=== PATIENT | female | born 1935 | race Caucasian/White ===

== ENCOUNTER → 2017-01-10 | Outpatient (CLI) | payer MEDICARE ==
[2016-03-21 18:48] VITALS: BP 168/90
--- NOTE | 2017-01-10 13:32 | RAD ---
DATE: 01/10/2017 EXAM: DIGITAL SCREEN BILAT W/CAD HISTORY: Routine screening COMPARISON: Baseline study This study was interpreted with the benefit of Computerized Aided Detection (CAD). FINDINGS: The breasts are heterogeneously dense. No discrete mass is identified. Benign type calcifications are present in both breasts. No suspicious microcalcifications are evident. IMPRESSION: There is no mammographic evidence of malignancy in either breast. BI-RADS CATEGORY: 2 BENIGN FINDING(S) RECOMMENDED FOLLOW-UP: 12M 12 MONTH FOLLOW-UP PQRS compliance statement: Patient information was entered into a reminder system with a target due date for the next mammogram. Mammography is a sensitive method for finding small breast cancers, but it does not detect them all and is not a substitute for careful clinical examination. A negative mammogram does not negate a clinically suspicious finding and should not result in delay in biopsying a clinically suspicious abnormality. "Our facility is accredited by the [employer] Mammography Program."
== END | disposition home or self-care (01) ==
LOC: MAMMO 08:48
PROVIDERS: ATTEND Family Medicine
DX: Z12.31 Encounter for screening mammogram for malignant neoplasm of breast (principal)
CPT/HCPCS: G0202; 77067

== ENCOUNTER 2017-04-30 23:33 | Inpatient (IN) | payer MEDICARE ==
[~2017-04-30] VITALS: Ht 154.9 cm; Wt 71.8 kg
[2017-05-01] MEDS ORDERED: ALBUTEROL SULFATE 2.5 MG/3 ML NEBU. NEB ONE (00:30)
[2017-05-01 00:38] LABS: BASO # 0.1 x10^3/uL (0.0-0.2); BASO % 1 % (0-3); EOS % 1 % (0-3); HEMATOCRIT 43.4 % (36.0-47.0); HEMOGLOBIN 14.8 g/dL (12.0-15.5); LYMPH # 1.2 x10^3/uL (1.0-4.8); LYMPH % 9 % (24-48); MEAN CORPUSCULAR HEMOGLOBIN 34 pg (25-35); MEAN CORPUSCULAR HGB CONC 34 g/dL (31-37); MEAN CORPUSCULAR VOLUME 98 fL (79-100); MONO % 4 % (0-9); NEUT % 86 % (31-73); PLATELET COUNT 311 x10^3/uL (140-400); RED BLOOD COUNT 4.41 x10^6/uL (3.50-5.40); RED CELL DISTRIBUTION WIDTH 12.9 % (11.5-14.5); WHITE BLOOD COUNT 13.8 x10^3/uL (4.0-11.0)
[2017-05-01 00:48] LABS: PROTHROMBIN TIME PATIENT 12.5 SEC (11.7-14.0)
[2017-05-01 01:38] LABS: CALCIUM 9.5 mg/dL (8.5-10.1); GFR 53.1; POTASSIUM 3.7 mmol/L (3.5-5.1)
[2017-05-01 01:43] LABS: ALBUMIN/GLOBULIN RATIO 1.1 (1.0-1.7); TOTAL BILIRUBIN 1.2 mg/dL (0.2-1.0); TOTAL PROTEIN 7.5 g/dL (6.4-8.2)
[2017-05-01 01:51] LABS: CREATINE KINASE 60 U/L (26-192)
[2017-05-01 01:54] LABS: CKMB MASS < 0.5 ng/mL (0.0-3.6)
--- NOTE | 2017-05-01 03:10 | PHYS DOC ---
Past Medical History Past Medical History: CAD, Heart Disease, Hypertension, PA Past Surgical History: Coronary Bypass Surgery Alcohol Use: Rarely Drug Use: None Adult General Chief Complaint Chief Complaint: COUGH HPI HPI Patient is a 82 year old female who presents with complaint of cough and shortness of breath. Patient states that she has been having trouble with cough over the past 4 weeks, however she has been having worsening symptoms over the past 3-4 days. The patient denies history of asthma or COPD but does have history of or near artery disease and has had bypass surgery several years ago. Patient has had no fevers. Patient states that she has been coughing up clearish to yellowish sputum. Denies fevers. Patient has had intermittent chest discomfort but denies any substernal chest pain currently. Patient states that she has been having coughing fits that cause her to have vomiting after coughing. Denies abdominal pain or diarrhea. Patient notes mild generalized weakness. Patient came to the emergency department for further evaluation. Review of Systems Review of Systems Constitutional: Denies fever or chills [] Eyes: Denies change in visual acuity, redness, or eye pain [] HENT: Denies nasal congestion or sore throat [] Respiratory: Cough, shortness of breath [] Cardiovascular: Edema, denies substernal chest pain [] GI: Denies abdominal pain, nausea, vomiting, bloody stools or diarrhea [] : Denies dysuria or hematuria [] Musculoskeletal: Denies back pain or joint pain [] Integument: Denies rash or skin lesions [] Neurologic: Denies headache, focal weakness or sensory changes [] Current Medications Current Medications Current Medications Medications (Trade) Dose Ordered Sig/Sofia Start Time Stop Time Status Last Admin Dose Admin Albuterol Sulfate (Ventolin Neb Soln) 2.5 mg 1X ONCE 05/01/17 00:30 05/01/17 00:31 DC 05/01/17 00:47 2.5 MG Allergies Allergies Allergies Coded Allergies Type Severity Reaction Last Updated Verified Penicillins Allergy Severe Hives 03/21/16 Yes Physical Exam Physical Exam Constitutional: Alert, afebrile, appears in mild discomfort. [] HENT: Normocephalic, atraumatic, bilateral external ears normal, oropharynx moist, no oral exudates, nose normal. [] Eyes: PERRLA, EOMI, conjunctiva normal, no discharge. [] Neck: Normal range of motion, no tenderness, supple, no stridor. [] Cardiovascular:Heart rate regular rhythm, no murmur [] Lungs & Thorax: Mildly restricted air movement bilaterally, no wheezes, no rales [] Abdomen: Bowel sounds normal, soft, no tenderness, no masses, no pulsatile masses. [] Skin: Warm, dry, no erythema, no rash. [] Back: No tenderness, no CVA tenderness. [] Extremities: No tenderness, no cyanosis, no clubbing, ROM intact, 1+ pedal edema bilaterally. [] Neurologic: Alert and oriented X 3, normal motor function, normal sensory function, no focal deficits noted. [] Current Patient Data Vital Signs Vital Signs Date Time Temp Pulse Resp B/P (MAP) Pulse Ox O2 Delivery O2 Flow Rate FiO2 05/01/17 03:00 74 18 142/69 (93) 95 Room Air 05/01/17 00:00 99.6 99.6 Lab Values Laboratory Tests Test 05/01/17 00:25 05/01/17 01:04 White Blood Count 13.8 x10^3/uL (4.0-11.0) H Red Blood Count 4.41 x10^6/uL (3.50-5.40) Hemoglobin 14.8 g/dL (12.0-15.5) Hematocrit 43.4 % (36.0-47.0) Mean Corpuscular Volume 98 fL (79-100) Mean Corpuscular Hemoglobin 34 pg (25-35) Mean Corpuscular Hemoglobin Concent 34 g/dL (31-37) Red Cell Distribution Width 12.9 % (11.5-14.5) Platelet Count 311 x10^3/uL (140-400) Neutrophils (%) (Auto) 86 % (31-73) H Lymphocytes (%) (Auto) 9 % (24-48) L Monocytes (%) (Auto) 4 % (0-9) Eosinophils (%) (Auto) 1 % (0-3) Basophils (%) (Auto) 1 % (0-3) Neutrophils # (Auto) 11.8 x10^3uL (1.8-7.7) H Lymphocytes # (Auto) 1.2 x10^3/uL (1.0-4.8) Monocytes # (Auto) 0.5 x10^3/uL (0.0-1.1) Eosinophils # (Auto) 0.1 x10^3/uL (0.0-0.7) Basophils # (Auto) 0.1 x10^3/uL (0.0-0.2) Segmented Neutrophils % 79 % (35-66) H Band Neutrophils % 4 % (0-9) Lymphocytes % 11 % (24-48) L Monocytes % 5 % (0-10) Eosinophils % 1 % (0-5) Platelet Estimate Adequate (ADEQUATE) Prothrombin Time 12.5 SEC (11.7-14.0) Prothrombin Time INR 1.0 (0.8-1.1) Sodium Level 144 mmol/L (136-145) Potassium Level 3.7 mmol/L (3.5-5.1) Chloride Level 105 mmol/L (98-107) Carbon Dioxide Level 27 mmol/L (21-32) Anion Gap 12 (6-14) Blood Urea Nitrogen 12 mg/dL (7-20) Creatinine 1.0 mg/dL (0.6-1.0) Estimated GFR (Cockcroft-Gault) 53.1 BUN/Creatinine Ratio 12 (6-20) Glucose Level 124 mg/dL (70-99) H Calcium Level 9.5 mg/dL (8.5-10.1) Total Bilirubin 1.2 mg/dL (0.2-1.0) H Aspartate Amino Transferase (AST) 20 U/L (15-37) Alanine Aminotransferase (ALT) 21 U/L (14-59) Alkaline Phosphatase 91 U/L (46-116) Creatine Kinase 60 U/L (26-192) Creatine Kinase MB (Mass) < 0.5 ng/mL (0.0-3.6) Creatine Kinase MB Relative Index 0.8 % (0-4) Troponin I Quantitative 0.180 ng/mL (0.000-0.055) Total Protein 7.5 g/dL (6.4-8.2) Albumin 4.0 g/dL (3.4-5.0) Albumin/Globulin Ratio 1.1 (1.0-1.7) Lipase 317 U/L (73-393) Laboratory Tests 05/01/17 00:25 Laboratory Tests 05/01/17 01:04 EKG EKG EKG interpreted by me: Heart rate 73, ventricularly paced rhythm, no acute ST elevations [] Radiology/Procedures Radiology/Procedures Two-view chest x-ray interpreted by me: No pulmonary infiltrates or effusions, normal cardiac silhouette [] Course & Med Decision Making Course & Med Decision Making Pertinent Labs and Imaging studies reviewed. (See chart for details) Patient was given breathing treatment in the emergency department with improvement in symptoms. The patient's chest x-ray did not show obvious signs of pneumonia. The patient was found to have a mildly elevated troponin level in the emergency department. Etiology of elevated troponin is unclear at this time. The patient will require admission to the hospital for rule out of possible myocardial infarction. I spoke with Dr. Lamar who accepted care patient in hospital. Dragon Disclaimer Dragon Disclaimer This electronic medical record was generated, in whole or in part, using a voice recognition dictation system. Departure Departure Impression: Primary Impression: Elevated troponin Additional Impression: Cough Disposition: ADMITTED INPATIENT Admitting Physician: Steven Lamar Condition: GUARDED Referrals: ZAKI SETHI MD (PCP) Problem Qualifiers AVANI GOLDBERG MD May 01, 2017 03:10
[2017-05-01 04:22] LABS: % EOS 1 % (0-5); PLT ESTIMATE ADEQUATE (ADEQUATE)
[2017-05-01 04:46] VITALS: BP 154/70
[2017-05-01] MEDS ORDERED: MELA3TAB2 PO (05:50)
[2017-05-01] MEDS ORDERED: RAMI2.5C PO (05:50)
[2017-05-01] MEDS ORDERED: ASPI-630 PO (05:50)
[2017-05-01] MEDS ORDERED: CHOL10003 PO (05:50)
[2017-05-01] MEDS ORDERED: LEVO25TA4 PO (05:50)
[2017-05-01] MEDS ORDERED: CEFD300C PO (05:50)
[2017-05-01] MEDS ORDERED: HYDR-971 PO (05:50)
[2017-05-01] MEDS ORDERED: MULT1TAB52 PO (05:50)
[2017-05-01] MEDS ORDERED: CARV3.122 PO (05:50)
[2017-05-01] MEDS ORDERED: CALC500T PO (05:50)
[2017-05-01] MEDS ORDERED: METH29OI TP (05:50)
[2017-05-01] MEDS ORDERED: SIMV20TA3 PO (05:50)
[2017-05-01] MEDS ORDERED: EZET10TA18 PO (05:50)
[2017-05-01] MEDS ORDERED: ALLO100T PO (05:50)
[2017-05-01 07:00] VITALS: BP 112/61
[2017-05-01] MEDS ORDERED: ONDANSETRON PF 4 MG/2 ML VIAL. IV PRN (07:00)
[2017-05-01] MEDS ORDERED: ACETAMINOPHEN 325 MG TABLET. PO PRN (07:00)
[2017-05-01] MEDS ORDERED: fentaNYL PF VIAL 100 MCG/2 ML VIAL IV PRN (07:00)
[2017-05-01] MEDS: IV NORMAL SALINE 1000ML BAG 1,000 ML IV SCH ×2 (07:47→16:35)
--- NOTE | 2017-05-01 08:06 | RAD ---
Examination: 2 views of the chest. History: History of cough Comparison: None available Findings: Left-sided cardiac pacer/AICD identified. Changes of CABG. The cardiomediastinal silhouette grossly appears unremarkable. There is no acute infiltrate or visualized pneumothorax identified. Impression: No acute cardiopulmonary findings.
--- NOTE | 2017-05-01 08:11 | EKG ---
[facility] [address] [place] [address] Test Date: 2017-05-01 Test Time: 08:01:10 Pat Name: RAVINDRA WAY Department: Room: 246 1 Gender: F Audit Reviewer: : 1935 Requested By: AVANI GOLDBERG Order Number: [id number] Reading MD: Measurements Intervals [place] Rate: 70 P: 27 NV: 140 QRS: 111 QRSD: 142 T: -15 QT: 470 QTc: 511 Interpretive Statements SINUS RHYTHM ABNORMAL RIGHT AXIS DEVIATION NON SPECIFIC INTRAVENTRICULAR BLOCK QRS(T) CONTOUR ABNORMALITY CONSIDER ANTEROLATERAL MYOCARDIAL DAMAGE ABNORMAL ECG RI6.01 Compared to ECG 03/21/2016 16:53:20 Possible ischemia no longer present T-wave abnormality no longer present
[2017-05-01] MEDS: IPRATRPIUM/ALBUTEROL 0.5/2.5MG 3 ML NEBU. NEB SCH ×4 (08:16→19:23)
[2017-05-01 10:48] VITALS: BP 130/54
--- NOTE | 2017-05-01 12:33 | PDOC2 ---
CARDIOLOGY CONSULT NOTE CHEIF COMPLAINT: Coughing Problems: HPI: Pleasant 82 y.o woman presenting to the hospital with acute on chronic cough. She has had struggles with post-nasal discharge, weather changes etc. She has had violent coughs and initially went to ER but was tired of waiting there for 4 hours and then presented to our ER. In the ER noted to have had an elevated troponin so she was admitted for rule out. At baseline she has mild dyspnea but denies any angina. Recently seen by Dr. Armando and reportedly told that her EF was improved. Currently chest pain free. Still has cough. PMHX: CAD s/p CABG HTN DLP SOCHX: No alcohol, tob or illicits. FAMHX: Non-contributory CURRENT MEDS: Current Medications Medications (Trade) Dose Ordered Sig/Sofia Start Time Stop Time Status Last Admin Dose Admin Acetaminophen (Tylenol) 650 mg PRN Q4HRS PRN 05/01/17 07:00 05/01/17 07:46 650 MG Albuterol Sulfate (Ventolin Neb Soln) 2.5 mg 1X ONCE 05/01/17 00:30 05/01/17 00:31 DC 05/01/17 00:47 2.5 MG Albuterol/ Ipratropium (Duoneb) 3 ml RTQID 05/01/17 08:00 05/02/17 07:59 05/01/17 11:26 3 ML Fentanyl Citrate (Fentanyl 2ml Vial) 50 mcg PRN Q2HR PRN 05/01/17 07:00 05/02/17 06:59 Ondansetron HCl (Zofran) 4 mg PRN Q8HRS PRN 05/01/17 07:00 05/02/17 06:59 Sodium Chloride 1,000 ml @ 100 mls/hr Q10H 05/01/17 06:56 05/02/17 06:55 05/01/17 07:47 100 MLS/HR ALLERGIES: Allergies Coded Allergies Type Severity Reaction Last Updated Verified Penicillins Allergy Severe Hives 03/21/16 Yes ROS: Negative for 08/06 systems reviewed unless otherwise noted above in HPI PHYSICAL EXAM: Vital Signs: Vital Signs Date Time Temp Pulse Resp B/P (MAP) Pulse Ox O2 Delivery O2 Flow Rate FiO2 05/01/17 11:26 95 Room Air 7/9/17 10:48 98.3 71 18 130/54 79 98.3 Physical Exam: GEN.: No apparent distress. Alert and oriented. HEENT: Head is normocephalic, atraumatic NECK: Supple. LUNGS: Clear to auscultation. HEART: RRR, S1, S2 present. Peripheral pulses intact ABDOMEN: Soft, nontender. Positive bowel sounds. EXTREMITIES: Without any cyanosis. NEUROLOGIC: Normal speech, normal tone PSYCHIATRIC: Normal affect, normal mood. SKIN: No ulcerations DIAGNOSTIC TESTING: Tele - unremarkable. EKG - No acute findings. Lab Trop +, downtrending, minimally elevated. ASSESSMENT: 1. Hypertensive urgency - 2. CAD s/p CABG 3. 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 4. Elevated troponin - likely secondary to #1. PLAN: 1. Restart home meds. 2. She is euvolemic. No need for diuresis. 3. BP likely elevated in the setting of coughing etc. At baseline she has normal BP on minimal meds. Supportive care. Check echo. f/u with outpt construction area manager Dr. Armando. Thanks for consultation. Ok to DC from CV perspective if echo is grossly normal. BYRON FINE MD May 01, 2017 12:33
[2017-05-01] MEDS ORDERED: CALCIUM CARBONATE 500 MG TABLET PO PRN (12:45)
--- NOTE | 2017-05-01 12:56 | PDOC1 ---
History and Physical Date of Admission Date of Admission DATE: 05/01/17 TIME: 12:54 Identification/Chief Complaint Chief Complaint Angina Problems: History of Present Illness History of Present Illness 82 y.o female had CP with elevated troponin to .14 then .18 Pt seen and examined Dw ER Doc. Plan is admit with consult to cardiology Dictation still broken Toatl time 32 minutes Current Problem List Problem List Problems Medical Problems: (1) Cough Status: Acute (2) Elevated troponin Status: Acute Problems: Current Medications Current Medications Current Medications Albuterol Sulfate (Ventolin Neb Soln) 2.5 mg 1X ONCE NEB Last administered on 05/01/17 00:47; Start 05/01/17 at 00:30; Stop 05/01/17 at 00:31; Status DC Acetaminophen (Tylenol) 650 mg PRN Q4HRS PRN PO MILD PAIN / TEMP Last administered on 05/01/17 07:46; Start 05/01/17 at 07:00 Ondansetron HCl (Zofran) 4 mg PRN Q8HRS PRN IV NAUSEA/VOMITING; Start 05/01/17 at 07:00; Stop 05/02/17 at 06:59 Fentanyl Citrate (Fentanyl 2ml Vial) 50 mcg PRN Q2HR PRN IV PAIN; Start at 07:00; Stop 05/02/17 at 06:59 Sodium Chloride 1,000 ml @ 100 mls/hr Q10H IV Last administered on 05/01/17 07 :47; Start 05/01/17 at 06:56; Stop 05/02/17 at 06:55 Albuterol/ Ipratropium (Duoneb) 3 ml RTQID NEB Last administered on 05/01/17 11 :26; Start 05/01/17 at 08:00; Stop 05/02/17 at 07:59 Allopurinol (Zyloprim) 100 mg DAILY PO ; Start 05/01/17 at 13:00 Aspirin (Children'S Aspirin) 81 mg DAILY PO ; Start 05/01/17 at 13:00 Calcium Carbonate/ Glycine (Oscal) 500 mg PRN TID PRN PO HEARTBURN.; Start 05/01 at 12:45 Carvedilol (Coreg) 3.125 mg BIDWMEALS PO ; Start 05/01/17 at 13:00 Vitamin D (Vitamin D3) 1,000 unit DAILY PO ; Start 05/01/17 at 13:00 EZETIMIBE (Zetia) 10 mg DAILY PO ; Start 05/01/17 at 13:00 Acetaminophen/ Hydrocodone Bitart (Lortab 5/325) 1 tab PRN Q4HRS PRN PO MODERATE PAIN; Start 05/01/17 at 12:45 Levothyroxine Sodium (Synthroid) 25 mcg DAILY06 PO ; Start 05/01/17 at 13:00 Multi-Ingredient Ointment (Analgesic [place]) 1 dinesh QHS TP ; Start 05/01/17 at 21:00 Simvastatin (Zocor) 20 mg QHS PO ; Start 05/01/17 at 21:00 Multivitamins (Thera M Plus) 1 tab DAILY PO ; Start 05/02/17 at 09:00 Lisinopril (Prinivil) 5 mg DAILY PO ; Start 05/01/17 at 13:00 Active Scripts Active Reported Simvastatin 20 Mg Tablet 1 Tab PO QHS Ramipril 2.5 Mg Capsule 1 Cap PO DAILY Traver 5-325 Tablet (Acetaminophen/Hydrocodone Bitart) 1 Each Tablet 1 Tab PO Q4- 6HRS Multivitamins (Multivitamin) 1 Each Tablet 1 Tab PO DAILY Melatonin 3 Mg Tablet 6 Mg PO Levothyroxine Sodium 25 Mcg Tablet 1 Tab PO DAILY Zetia (Ezetimibe) 10 Mg Tablet 1 Tab PO DAILY Vitamin D3 (Cholecalciferol (Vitamin D3)) 1,000 Unit Tablet 1 Tab PO DAILY Cefdinir 300 Mg Capsule 1 Cap PO BID Carvedilol 3.125 Mg Tablet 1 Tab PO BID Calcium Carbonate 500 Mg Tablet 500 Mg PO PRN TID Aspirin 81 Mg Tab.chew 1 Tab PO DAILY Analgesic [place] (Methyl Salicylate/Menthol) 28 Gm Oint...g. 1 Gm TP QHS Allopurinol 100 Mg Tablet 1 Tab PO DAILY Allergies Allergies: Coded Allergies: Penicillins (Verified Allergy, Severe, Hives, 03/21/16) Vitals Vitals Vital Signs Date Time Temp Pulse Resp B/P (MAP) Pulse Ox O2 Delivery O2 Flow Rate FiO2 05/01/17 11:26 95 Room Air 05/01/17 10:48 98.3 71 18 130/54 (79) 98.3 Labs Labs Laboratory Tests Test 05/01/17 00:25 05/01/17 01:04 05/01/17 08:00 White Blood Count 13.8 x10^3/uL (4.0-11.0) Red Blood Count 4.41 x10^6/uL (3.50-5.40) Hemoglobin 14.8 g/dL (12.0-15.5) Hematocrit 43.4 % (36.0-47.0) Mean Corpuscular Volume 98 fL (79-100) Mean Corpuscular Hemoglobin 34 pg (25-35) Mean Corpuscular Hemoglobin Concent 34 g/dL (31-37) Red Cell Distribution Width 12.9 % (11.5-14.5) Platelet Count 311 x10^3/uL (140-400) Neutrophils (%) (Auto) 86 % (31-73) Lymphocytes (%) (Auto) 9 % (24-48) Monocytes (%) (Auto) 4 % (0-9) Eosinophils (%) (Auto) 1 % (0-3) Basophils (%) (Auto) 1 % (0-3) Neutrophils # (Auto) 11.8 x10^3uL (1.8-7.7) Lymphocytes # (Auto) 1.2 x10^3/uL (1.0-4.8) Monocytes # (Auto) 0.5 x10^3/uL (0.0-1.1) Eosinophils # (Auto) 0.1 x10^3/uL (0.0-0.7) Basophils # (Auto) 0.1 x10^3/uL (0.0-0.2) Segmented Neutrophils % 79 % (35-66) Band Neutrophils % 4 % (0-9) Lymphocytes % 11 % (24-48) Monocytes % 5 % (0-10) Eosinophils % 1 % (0-5) Platelet Estimate Adequate (ADEQUATE) Prothrombin Time 12.5 SEC (11.7-14.0) Prothromb Time International Ratio 1.0 (0.8-1.1) Sodium Level 144 mmol/L (136-145) Potassium Level 3.7 mmol/L (3.5-5.1) Chloride Level 105 mmol/L (98-107) Carbon Dioxide Level 27 mmol/L (21-32) Anion Gap 12 (6-14) Blood Urea Nitrogen 12 mg/dL (7-20) Creatinine 1.0 mg/dL (0.6-1.0) Estimated GFR (Cockcroft-Gault) 53.1 BUN/Creatinine Ratio 12 (6-20) Glucose Level 124 mg/dL (70-99) Calcium Level 9.5 mg/dL (8.5-10.1) Total Bilirubin 1.2 mg/dL (0.2-1.0) Aspartate Amino Transf (AST/SGOT) 20 U/L (15-37) Alanine Aminotransferase (ALT/SGPT) 21 U/L (14-59) Alkaline Phosphatase 91 U/L (46-116) Creatine Kinase 60 U/L (26-192) Creatine Kinase MB (Mass) < 0.5 ng/mL (0.0-3.6) Creatine Kinase MB Relative Index 0.8 % (0-4) Troponin I Quantitative 0.180 ng/mL (0.000-0.055) 0.148 ng/mL (0.000-0.055) Total Protein 7.5 g/dL (6.4-8.2) Albumin 4.0 g/dL (3.4-5.0) Albumin/Globulin Ratio 1.1 (1.0-1.7) Lipase 317 U/L (73-393) Laboratory Tests Test 05/01/17 00:25 05/01/17 01:04 05/01/17 08:00 White Blood Count 13.8 x10^3/uL (4.0-11.0) Red Blood Count 4.41 x10^6/uL (3.50-5.40) Hemoglobin 14.8 g/dL (12.0-15.5) Hematocrit 43.4 % (36.0-47.0) Mean Corpuscular Volume 98 fL (79-100) Mean Corpuscular Hemoglobin 34 pg (25-35) Mean Corpuscular Hemoglobin Concent 34 g/dL (31-37) Red Cell Distribution Width 12.9 % (11.5-14.5) Platelet Count 311 x10^3/uL (140-400) Neutrophils (%) (Auto) 86 % (31-73) Lymphocytes (%) (Auto) 9 % (24-48) Monocytes (%) (Auto) 4 % (0-9) Eosinophils (%) (Auto) 1 % (0-3) Basophils (%) (Auto) 1 % (0-3) Neutrophils # (Auto) 11.8 x10^3uL (1.8-7.7) Lymphocytes # (Auto) 1.2 x10^3/uL (1.0-4.8) Monocytes # (Auto) 0.5 x10^3/uL (0.0-1.1) Eosinophils # (Auto) 0.1 x10^3/uL (0.0-0.7) Basophils # (Auto) 0.1 x10^3/uL (0.0-0.2) Segmented Neutrophils % 79 % (35-66) Band Neutrophils % 4 % (0-9) Lymphocytes % 11 % (24-48) Monocytes % 5 % (0-10) Eosinophils % 1 % (0-5) Platelet Estimate Adequate (ADEQUATE) Prothrombin Time 12.5 SEC (11.7-14.0) Prothromb Time International Ratio 1.0 (0.8-1.1) Sodium Level 144 mmol/L (136-145) Potassium Level 3.7 mmol/L (3.5-5.1) Chloride Level 105 mmol/L (98-107) Carbon Dioxide Level 27 mmol/L (21-32) Anion Gap 12 (6-14) Blood Urea Nitrogen 12 mg/dL (7-20) Creatinine 1.0 mg/dL (0.6-1.0) Estimated GFR (Cockcroft-Gault) 53.1 BUN/Creatinine Ratio 12 (6-20) Glucose Level 124 mg/dL (70-99) Calcium Level 9.5 mg/dL (8.5-10.1) Total Bilirubin 1.2 mg/dL (0.2-1.0) Aspartate Amino Transf (AST/SGOT) 20 U/L (15-37) Alanine Aminotransferase (ALT/SGPT) 21 U/L (14-59) Alkaline Phosphatase 91 U/L (46-116) Creatine Kinase 60 U/L (26-192) Creatine Kinase MB (Mass) < 0.5 ng/mL (0.0-3.6) Creatine Kinase MB Relative Index 0.8 % (0-4) Troponin I Quantitative 0.180 ng/mL (0.000-0.055) 0.148 ng/mL (0.000-0.055) Total Protein 7.5 g/dL (6.4-8.2) Albumin 4.0 g/dL (3.4-5.0) Albumin/Globulin Ratio 1.1 (1.0-1.7) Lipase 317 U/L (73-393) VTE Prophylaxis Ordered VTE Prophylaxis Devices: Yes VTE Pharmacological Prophylaxi: Yes GORDON CHAVEZ III, DO May 01, 2017 12:56
[2017-05-01] MEDS: CARVEDILOL 3.125 MG TABLET. PO SCH ×2 (13:00→16:58)
[2017-05-01] MEDS: ASPIRIN CHEWABLE 81 MG TABLET. PO SCH (13:48)
[2017-05-01] MEDS: ALLOPURINOL 100 MG TABLET. PO SCH (13:48)
[2017-05-01] MEDS: CHOLECALCIFEROL (VITAMIN D3) 1,000 UNIT TABLET PO SCH (13:48)
[2017-05-01] MEDS: LISINOPRIL 5 MG TABLET. PO SCH (13:48)
[2017-05-01] MEDS: EZETIMIBE 10 MG TABLET. PO SCH (13:49)
[2017-05-01] MEDS: LEVOTHYROXINE 25 MCG TABLET. PO SCH (13:52)
[2017-05-01 15:00] VITALS: BP 130/57
[2017-05-01] MEDS: HYDROcodone/APAP 5/325MG 1 TAB TABLET PO PRN (19:05)
[2017-05-01 19:45] VITALS: BP 95/42
[2017-05-01] MEDS: METHYL SALICYLATE/MENTHOL TOPICAL OINTMENT 29GM TUBE. TP SCH (20:46)
[2017-05-01] MEDS: SIMVASTATIN 20 MG TABLET PO SCH (20:46)
[2017-05-01 23:00] VITALS: BP 106/44
[2017-05-02] MEDS: IV NORMAL SALINE 1000ML BAG 1,000 ML IV SCH (02:56)
[2017-05-02 03:45] VITALS: BP_SYST 119; BP_SYST 165; BP_DIAS 47; BP_DIAS 55
[2017-05-02 04:52] LABS: BASO # 0.1 x10^3/uL (0.0-0.2); BASO % 1 % (0-3); EOS % 6 % (0-3); HEMOGLOBIN 11.9 g/dL (12.0-15.5); LYMPH # 1.1 x10^3/uL (1.0-4.8); LYMPH % 15 % (24-48); MEAN CORPUSCULAR HEMOGLOBIN 34 pg (25-35); MEAN CORPUSCULAR HGB CONC 34 g/dL (31-37); MEAN CORPUSCULAR VOLUME 100 fL (79-100); MONO % 5 % (0-9); NEUT % 72 % (31-73); PLATELET COUNT 219 x10^3/uL (140-400); RED BLOOD COUNT 3.51 x10^6/uL (3.50-5.40); RED CELL DISTRIBUTION WIDTH 13.4 % (11.5-14.5); WHITE BLOOD COUNT 7.3 x10^3/uL (4.0-11.0)
[2017-05-02 05:19] LABS: ALBUMIN/GLOBULIN RATIO 0.9 (1.0-1.7); CALCIUM 8.1 mg/dL (8.5-10.1); CREATININE 1.1 mg/dL (0.6-1.0); GFR 47.6; POTASSIUM 3.5 mmol/L (3.5-5.1); TOTAL BILIRUBIN 0.7 mg/dL (0.2-1.0); TOTAL PROTEIN 6.3 g/dL (6.4-8.2)
[2017-05-02] MEDS: LEVOTHYROXINE 25 MCG TABLET. PO SCH (05:56)
[2017-05-02 07:30] VITALS: BP 163/55
[2017-05-02] MEDS: MULTIVITAMIN with MINERAL TABLET. PO SCH (08:36)
[2017-05-02] MEDS: ALLOPURINOL 100 MG TABLET. PO SCH (08:36)
[2017-05-02] MEDS: ASPIRIN CHEWABLE 81 MG TABLET. PO SCH (08:36)
[2017-05-02] MEDS: CHOLECALCIFEROL (VITAMIN D3) 1,000 UNIT TABLET PO SCH (08:37)
[2017-05-02] MEDS: EZETIMIBE 10 MG TABLET. PO SCH (08:37)
[2017-05-02] MEDS: CARVEDILOL 3.125 MG TABLET. PO SCH ×2 (08:39→16:56)
[2017-05-02] MEDS: LISINOPRIL 5 MG TABLET. PO SCH (08:39)
[2017-05-02] MEDS: HYDROcodone/APAP 5/325MG 1 TAB TABLET PO PRN ×2 (10:37→19:42)
[2017-05-02 10:49] VITALS: BP 126/55
--- NOTE | 2017-05-02 10:53 | CARD ---
APPROVED REPORT EXAM: Two-dimensional and M-mode echocardiogram with Doppler and color Doppler. Other Information Quality : Average Rhythm : Pacemaker INDICATION Elevated troponin level 2D DIMENSIONS RVDd2.2 (2.9-3.5cm)Left Atrium(2D)4.1 (1.6-4.0cm) IVSd1.2 (0.7-1.1cm)Aortic Root(2D)3.1 (2.0-3.7cm) LVDd5.2 (3.9-5.9cm)LVOT Diameter2.1 (1.8-2.4cm) PWd1.2 (0.7-1.1cm)LVDs4.4 (2.5-4.0cm) FS (%) 14.4 %SV38.9 ml LVEF(%)30.5 (>50%) Aortic Valve AoV Peak Saleem.98.0cm/sAoV VTI20.5cm AO Peak GR.3.8mmHgLVOT VTI 10.65cm AO Mean GR.2mmHg Mitral Valve MV E Pzdpcjob03.8cm/sMV E Peak Gr.2mmHg MV DECEL [id number] A Eippnlie16.5cm/s MV OTB39znP/A Ratio0.9 MV A Nssasiel558zlYAA (PHT)4.40cm2 TDI Lateral E' P. V5.79cm/sMedial E' P. V4.05cm/s E/Lateral E'11.7E/Medial E'16.7 Tricuspid Valve TR P. Swurajsf359ua/sRAP [id number] TR Peak Gr.55scTrBIWR13brJc LEFT VENTRICLE The left ventricle is normal size. There is borderline concentric left ventricular hypertrophy. Left ventricle systolic function is moderately impaired. The Ejection Fraction is 25-30%. There is global hypokinesis of the left ventricle. Tissue Doppler imaging reveals moderate left ventricular diastolic dysfunction. No left ventricle thrombus noted on this study. RIGHT VENTRICLE The right ventricle is normal size. The right ventricular systolic function is normal. There is a pac emaker/ICD lead seen in the RV/RA. ATRIA The left atrium is borderline dilated. The right atrium size is normal. The interatrial septum is int act with no evidence for an atrial septal defect or patent foramen ovale as noted on 2-D or Doppler i maging. AORTIC VALVE The aortic valve is calcified but opens well. The aortic valve is trileaflet. Doppler and Color Flow revealed no significant aortic regurgitation. There is no significant aortic valvular stenosis. MITRAL VALVE The mitral valve leaflets are thickened. There is no mitral valve stenosis. Doppler and Color Flow re vealed mild mitral regurgitation. TRICUSPID VALVE The tricuspid valve is not well visualized. Doppler and Color Flow revealed mild tricuspid regurgitat ion. The PA pressure was estimated at 28 mmHg. There is no tricuspid valve stenosis. PULMONIC VALVE The pulmonic valve is not well visualized. Doppler and Color Flow revealed no pulmonic valvular regur gitation. There is no pulmonic valvular stenosis. GREAT VESSELS The aortic root is normal in size. The IVC is dilated and collapses >50% with inspiration. PERICARDIAL EFFUSION There is no evidence of significant pericardial effusion. Critical Notification Critical Value: No <Conclusion> Left ventricle systolic function is moderately impaired. The Ejection Fraction is 25-30%. There is global hypokinesis of the left ventricle. Tissue Doppler imaging reveals moderate left ventricular diastolic dysfunction. There is a pacemaker/ICD lead seen in the RV/RA.
--- NOTE | 2017-05-02 10:53 | PDOC2 ---
CONSULT Date of Consult Date of Consult DATE: 05/02/17 TIME: 10:44 Reason for Consult Reason for Consult: persistent cough Referring Physician Referring Physician: Dr Lamar Identification/Chief Complaint Chief Complaint cough Problems: History of Present Illness Reason for Visit: Pleasant 82 y.o woman presenting to the hospital with acute on chronic cough. She has had struggles with post-nasal discharge in the past but not now. She vomited large amount on admission. Cough is productive of yellow sputum She has had violent coughs and initially went to ER but was tired of waiting there for 4 hours and then presented to our ER. In the ER noted to have had an elevated troponin so she was admitted for rule out. At baseline she has mild dyspnea but denies any angina. Recently seen by Dr. Armando and reportedly told that her EF was improved. Currently chest pain free. Still has cough.no hemoptysis. ON lisinopril for 2-3 years. no wheezing. no cough with eating Past Medical History Pulmonary: Bronchitis GI: GERD Heme/Onc: No pertinent hx Hepatobiliary: No pertinent hx Psych: No pertinent hx Rheumatologic: No pertinent hx Infectious disease: No pertinent hx Renal/: No pertinent hx Family History Family History: Other (non contributory to lungs) Social History No Current Problem List Problem List Problems Medical Problems: (1) Cough Status: Acute (2) Elevated troponin Status: Acute Current Medications Current Medications Current Medications Albuterol Sulfate (Ventolin Neb Soln) 2.5 mg 1X ONCE NEB Last administered on 05/01/17 00:47; Start 05/01/17 at 00:30; Stop 05/01/17 at 00:31; Status DC Acetaminophen (Tylenol) 650 mg PRN Q4HRS PRN PO MILD PAIN / TEMP Last administered on 05/01/17 07:46; Start 05/01/17 at 07:00 Ondansetron HCl (Zofran) 4 mg PRN Q8HRS PRN IV NAUSEA/VOMITING; Start 05/01/17 at 07:00; Stop 05/02/17 at 06:59; Status DC Fentanyl Citrate (Fentanyl 2ml Vial) 50 mcg PRN Q2HR PRN IV PAIN; Start at 07:00; Stop 05/02/17 at 06:59; Status DC Sodium Chloride 1,000 ml @ 100 mls/hr Q10H IV Last administered on 05/01/17 07 :47; Start 05/01/17 at 06:56; Stop 05/02/17 at 06:55; Status DC Albuterol/ Ipratropium (Duoneb) 3 ml RTQID NEB Last administered on 05/01/17 19 :23; Start 05/01/17 at 08:00; Stop 05/02/17 at 07:59; Status DC Allopurinol (Zyloprim) 100 mg DAILY PO Last administered on 05/02/17 08:36; Start 05/01/17 at 13:00 Aspirin (Children'S Aspirin) 81 mg DAILY PO Last administered on 05/02/17 08: 36; Start 05/01/17 at 13:00 Calcium Carbonate/ Glycine (Oscal) 500 mg PRN TID PRN PO HEARTBURN.; Start 05/01 at 12:45 Carvedilol (Coreg) 3.125 mg BIDWMEALS PO Last administered on 05/02/17 08:39; Start 05/01/17 at 13:00 Vitamin D (Vitamin D3) 1,000 unit DAILY PO Last administered on 05/02/17 08:37 ; Start 05/01/17 at 13:00 EZETIMIBE (Zetia) 10 mg DAILY PO Last administered on 05/02/17 08:37; Start at 13:00 Acetaminophen/ Hydrocodone Bitart (Lortab 5/325) 1 tab PRN Q4HRS PRN PO MODERATE PAIN Last administered on 05/01/17 19:05; Start 05/01/17 at 12:45 Levothyroxine Sodium (Synthroid) 25 mcg DAILY06 PO Last administered on 05:56; Start 05/01/17 at 13:00 Multi-Ingredient Ointment (Analgesic [place]) 1 dinesh QHS TP Last administered on 20:46; Start 05/01/17 at 21:00 Simvastatin (Zocor) 20 mg QHS PO Last administered on 05/01/17 20:46; Start 05/01/17 at 21:00 Multivitamins (Thera M Plus) 1 tab DAILY PO Last administered on 05/02/17 08: 36; Start 7/10/17 at 09:00 Lisinopril (Prinivil) 5 mg DAILY PO Last administered on 05/02/17t 08:39; Start 05/01/17 at 13:00 Active Scripts Active Reported Simvastatin 20 Mg Tablet 1 Tab PO QHS Ramipril 2.5 Mg Capsule 1 Cap PO DAILY [place] 5-325 Tablet (Acetaminophen/Hydrocodone Bitart) 1 Each Tablet 1 Tab PO Q4- 6HRS Multivitamins (Multivitamin) 1 Each Tablet 1 Tab PO DAILY Melatonin 3 Mg Tablet 6 Mg PO Levothyroxine Sodium 25 Mcg Tablet 1 Tab PO DAILY Zetia (Ezetimibe) 10 Mg Tablet 1 Tab PO DAILY Vitamin D3 (Cholecalciferol (Vitamin D3)) 1,000 Unit Tablet 1 Tab PO DAILY Cefdinir 300 Mg Capsule 1 Cap PO BID Carvedilol 3.125 Mg Tablet 1 Tab PO BID Calcium Carbonate 500 Mg Tablet 500 Mg PO PRN TID Aspirin 81 Mg Tab.chew 1 Tab PO DAILY Analgesic [place] (Methyl Salicylate/Menthol) 28 Gm Oint...g. 1 Gm TP QHS Allopurinol 100 Mg Tablet 1 Tab PO DAILY Allergies Allergies: Coded Allergies: Penicillins (Verified Allergy, Severe, Hives, 03/21/16) ROS Review of System 12 point obtained .pertinent + in my h/o present illness Physical Exam General: Alert, Oriented X3 HEENT: Atraumatic Lungs: Clear to auscultation Heart: Regular rate Abdomen: Normal bowel sounds, Soft Extremities: No clubbing Skin: No rashes Vitals VITALS Vital Signs Date Time Temp Pulse Resp B/P (MAP) Pulse Ox O2 Delivery O2 Flow Rate FiO2 05/02/17 08:39 70 163/55 05/02/17 07:52 Room Air 05/02/17 07:30 98.5 18 93 98.5 Labs Labs Laboratory Tests Test 05/01/17 00:25 05/01/17 01:04 05/01/17 08:00 05/01/17 15:55 White Blood Count 13.8 x10^3/uL (4.0-11.0) Red Blood Count 4.41 x10^6/uL (3.50-5.40) Hemoglobin 14.8 g/dL (12.0-15.5) Hematocrit 43.4 % (36.0-47.0) Mean Corpuscular Volume 98 fL (79-100) Mean Corpuscular Hemoglobin 34 pg (25-35) Mean Corpuscular Hemoglobin Concent 34 g/dL (31-37) Red Cell Distribution Width 12.9 % (11.5-14.5) Platelet Count 311 x10^3/uL (140-400) Neutrophils (%) (Auto) 86 % (31-73) Lymphocytes (%) (Auto) 9 % (24-48) Monocytes (%) (Auto) 4 % (0-9) Eosinophils (%) (Auto) 1 % (0-3) Basophils (%) (Auto) 1 % (0-3) Neutrophils # (Auto) 11.8 x10^3uL (1.8-7.7) Lymphocytes # (Auto) 1.2 x10^3/uL (1.0-4.8) Monocytes # (Auto) 0.5 x10^3/uL (0.0-1.1) Eosinophils # (Auto) 0.1 x10^3/uL (0.0-0.7) Basophils # (Auto) 0.1 x10^3/uL (0.0-0.2) Segmented Neutrophils % 79 % (35-66) Band Neutrophils % 4 % (0-9) Lymphocytes % 11 % (24-48) Monocytes % 5 % (0-10) Eosinophils % 1 % (0-5) Platelet Estimate Adequate (ADEQUATE) Prothrombin Time 12.5 SEC (11.7-14.0) Prothromb Time International Ratio 1.0 (0.8-1.1) Sodium Level 144 mmol/L (136-145) Potassium Level 3.7 mmol/L (3.5-5.1) Chloride Level 105 mmol/L (98-107) Carbon Dioxide Level 27 mmol/L (21-32) Anion Gap 12 (6-14) Blood Urea Nitrogen 12 mg/dL (7-20) Creatinine 1.0 mg/dL (0.6-1.0) Estimated GFR (Cockcroft-Gault) 53.1 BUN/Creatinine Ratio 12 (6-20) Glucose Level 124 mg/dL (70-99) Calcium Level 9.5 mg/dL (8.5-10.1) Total Bilirubin 1.2 mg/dL (0.2-1.0) Aspartate Amino Transf (AST/SGOT) 20 U/L (15-37) Alanine Aminotransferase (ALT/SGPT) 21 U/L (14-59) Alkaline Phosphatase 91 U/L (46-116) Creatine Kinase 60 U/L (26-192) Creatine Kinase MB (Mass) < 0.5 ng/mL (0.0-3.6) Creatine Kinase MB Relative Index 0.8 % (0-4) Troponin I Quantitative 0.180 ng/mL (0.000-0.055) 0.148 ng/mL (0.000-0.055) 0.081 ng/mL (0.000-0.055) Total Protein 7.5 g/dL (6.4-8.2) Albumin 4.0 g/dL (3.4-5.0) Albumin/Globulin Ratio 1.1 (1.0-1.7) Lipase 317 U/L (73-393) Test 05/02/17 04:00 White Blood Count 7.3 x10^3/uL (4.0-11.0) Red Blood Count 3.51 x10^6/uL (3.50-5.40) Hemoglobin 11.9 g/dL (12.0-15.5) Hematocrit 35.0 % (36.0-47.0) Mean Corpuscular Volume 100 fL (79-100) Mean Corpuscular Hemoglobin 34 pg (25-35) Mean Corpuscular Hemoglobin Concent 34 g/dL (31-37) Red Cell Distribution Width 13.4 % (11.5-14.5) Platelet Count 219 x10^3/uL (140-400) Neutrophils (%) (Auto) 72 % (31-73) Lymphocytes (%) (Auto) 15 % (24-48) Monocytes (%) (Auto) 5 % (0-9) Eosinophils (%) (Auto) 6 % (0-3) Basophils (%) (Auto) 1 % (0-3) Neutrophils # (Auto) 5.3 x10^3uL (1.8-7.7) Lymphocytes # (Auto) 1.1 x10^3/uL (1.0-4.8) Monocytes # (Auto) 0.4 x10^3/uL (0.0-1.1) Eosinophils # (Auto) 0.5 x10^3/uL (0.0-0.7) Basophils # (Auto) 0.1 x10^3/uL (0.0-0.2) Sodium Level 143 mmol/L (136-145) Potassium Level 3.5 mmol/L (3.5-5.1) Chloride Level 107 mmol/L (98-107) Carbon Dioxide Level 27 mmol/L (21-32) Anion Gap 9 (6-14) Blood Urea Nitrogen 22 mg/dL (7-20) Creatinine 1.1 mg/dL (0.6-1.0) Estimated GFR (Cockcroft-Gault) 47.6 BUN/Creatinine Ratio 20 (6-20) Glucose Level 84 mg/dL (70-99) Calcium Level 8.1 mg/dL (8.5-10.1) Total Bilirubin 0.7 mg/dL (0.2-1.0) Aspartate Amino Transf (AST/SGOT) 19 U/L (15-37) Alanine Aminotransferase (ALT/SGPT) 15 U/L (14-59) Alkaline Phosphatase 67 U/L (46-116) Total Protein 6.3 g/dL (6.4-8.2) Albumin 3.0 g/dL (3.4-5.0) Albumin/Globulin Ratio 0.9 (1.0-1.7) Laboratory Tests Test 05/01/17 15:55 05/02/17 04:00 Troponin I Quantitative 0.081 ng/mL (0.000-0.055) White Blood Count 7.3 x10^3/uL (4.0-11.0) Red Blood Count 3.51 x10^6/uL (3.50-5.40) Hemoglobin 11.9 g/dL (12.0-15.5) Hematocrit 35.0 % (36.0-47.0) Mean Corpuscular Volume 100 fL (79-100) Mean Corpuscular Hemoglobin 34 pg (25-35) Mean Corpuscular Hemoglobin Concent 34 g/dL (31-37) Red Cell Distribution Width 13.4 % (11.5-14.5) Platelet Count 219 x10^3/uL (140-400) Neutrophils (%) (Auto) 72 % (31-73) Lymphocytes (%) (Auto) 15 % (24-48) Monocytes (%) (Auto) 5 % (0-9) Eosinophils (%) (Auto) 6 % (0-3) Basophils (%) (Auto) 1 % (0-3) Neutrophils # (Auto) 5.3 x10^3uL (1.8-7.7) Lymphocytes # (Auto) 1.1 x10^3/uL (1.0-4.8) Monocytes # (Auto) 0.4 x10^3/uL (0.0-1.1) Eosinophils # (Auto) 0.5 x10^3/uL (0.0-0.7) Basophils # (Auto) 0.1 x10^3/uL (0.0-0.2) Sodium Level 143 mmol/L (136-145) Potassium Level 3.5 mmol/L (3.5-5.1) Chloride Level 107 mmol/L (98-107) Carbon Dioxide Level 27 mmol/L (21-32) Anion Gap 9 (6-14) Blood Urea Nitrogen 22 mg/dL (7-20) Creatinine 1.1 mg/dL (0.6-1.0) Estimated GFR (Cockcroft-Gault) 47.6 BUN/Creatinine Ratio 20 (6-20) Glucose Level 84 mg/dL (70-99) Calcium Level 8.1 mg/dL (8.5-10.1) Total Bilirubin 0.7 mg/dL (0.2-1.0) Aspartate Amino Transf (AST/SGOT) 19 U/L (15-37) Alanine Aminotransferase (ALT/SGPT) 15 U/L (14-59) Alkaline Phosphatase 67 U/L (46-116) Total Protein 6.3 g/dL (6.4-8.2) Albumin 3.0 g/dL (3.4-5.0) Albumin/Globulin Ratio 0.9 (1.0-1.7) Images Images CXR/ CLEAR Assessment/Plan Assessment/Plan 1. Acute on chronic cough, suspect due to acute Bronchitis, ? mild aspiration POA(vomited once) 2. No sig. smoking history 3. Clear CXR 4. Mild chronic cough/ possible MILANA induced PLAN 1. sputum for c/s 2. Empiric antibiotic 3. Nebs, including steroids nebs 4. Consider changing lisinopril to different agent if cough does not resolve with above ROLANDO MANCINI MD May 02, 2017 10:53
--- NOTE | 2017-05-02 12:55 | PDOC ---
PROGRESS NOTES Chief Complaint Chief Complaint Worsening cough ASSESSMENT AND PLAN: 1. Acute cough with sputum production: CXR clear; probable bronchitis; on empiric Abx, nebs, suppl O2. sputum culture pending. appreciate Dr Correia's input 2. Chronic cough: ?MILANA-I related. hold lisinopril. 3. HTN urgency: resolved. continue home meds except MILANA-I. on low dose coreg ; increase if needed 4. CHF: Chronic systolic. current echo with EF 25-30%. no signs of fluid overload 5. CAD: hx CABG. no acute issues (min elevated troponin most likely related to 3.) cont home meds History of Present Illness History of Present Illness tired and weak. "can't eat this stuff" after cleaning plate, requesting broth and tea Vitals Vitals Vital Signs Date Time Temp Pulse Resp B/P (MAP) Pulse Ox O2 Delivery O2 Flow Rate FiO2 05/02/17 11:37 Room Air 05/02/17 10:49 98.3 70 18 126/55 (78) 92 98.3 Physical Exam General: Alert, Oriented X3 Heart: Regular rate Lungs: Clear Abdomen: Normal bowel sounds, Soft Extremities: No clubbing Skin: No rashes Labs LABS Laboratory Tests Test 05/01/17 15:55 05/02/17 04:00 Troponin I Quantitative 0.081 ng/mL (0.000-0.055) White Blood Count 7.3 x10^3/uL (4.0-11.0) Red Blood Count 3.51 x10^6/uL (3.50-5.40) Hemoglobin 11.9 g/dL (12.0-15.5) Hematocrit 35.0 % (36.0-47.0) Mean Corpuscular Volume 100 fL (79-100) Mean Corpuscular Hemoglobin 34 pg (25-35) Mean Corpuscular Hemoglobin Concent 34 g/dL (31-37) Red Cell Distribution Width 13.4 % (11.5-14.5) Platelet Count 219 x10^3/uL (140-400) Neutrophils (%) (Auto) 72 % (31-73) Lymphocytes (%) (Auto) 15 % (24-48) Monocytes (%) (Auto) 5 % (0-9) Eosinophils (%) (Auto) 6 % (0-3) Basophils (%) (Auto) 1 % (0-3) Neutrophils # (Auto) 5.3 x10^3uL (1.8-7.7) Lymphocytes # (Auto) 1.1 x10^3/uL (1.0-4.8) Monocytes # (Auto) 0.4 x10^3/uL (0.0-1.1) Eosinophils # (Auto) 0.5 x10^3/uL (0.0-0.7) Basophils # (Auto) 0.1 x10^3/uL (0.0-0.2) Sodium Level 143 mmol/L (136-145) Potassium Level 3.5 mmol/L (3.5-5.1) Chloride Level 107 mmol/L (98-107) Carbon Dioxide Level 27 mmol/L (21-32) Anion Gap 9 (6-14) Blood Urea Nitrogen 22 mg/dL (7-20) Creatinine 1.1 mg/dL (0.6-1.0) Estimated GFR (Cockcroft-Gault) 47.6 BUN/Creatinine Ratio 20 (6-20) Glucose Level 84 mg/dL (70-99) Calcium Level 8.1 mg/dL (8.5-10.1) Total Bilirubin 0.7 mg/dL (0.2-1.0) Aspartate Amino Transf (AST/SGOT) 19 U/L (15-37) Alanine Aminotransferase (ALT/SGPT) 15 U/L (14-59) Alkaline Phosphatase 67 U/L (46-116) Total Protein 6.3 g/dL (6.4-8.2) Albumin 3.0 g/dL (3.4-5.0) Albumin/Globulin Ratio 0.9 (1.0-1.7) ALEJANDRA HEATH MD May 02, 2017 12:55
[2017-05-02] MEDS: BUDESONIDE 0.5 MG/2 ML NEBU. NEB SCH ×2 (13:12→19:30)
[2017-05-02] MEDS: IPRATRPIUM/ALBUTEROL 0.5/2.5MG 3 ML NEBU. NEB SCH ×3 (13:12→19:30)
[2017-05-02 15:15] VITALS: BP 127/60
[2017-05-02 19:20] VITALS: BP 113/53
[2017-05-02] MEDS: METHYL SALICYLATE/MENTHOL TOPICAL OINTMENT 29GM TUBE. TP SCH (21:07)
[2017-05-02] MEDS: SIMVASTATIN 20 MG TABLET PO SCH (21:07)
[2017-05-02 23:00] VITALS: BP 122/60
--- NOTE | 2017-05-03 00:10 | ACF ---
Admission Forms Criteria CHEST PAIN Clinical Indications for Admission to Inpatient Care (Place 'X' for any and all applicable criteria): Admission is indicated for chest pain and ANY ONE of the following(1)(2)(3)(4)(5 ): [ ]I. Angina with acute coronary syndrome (Also use Myocardial Infarction or Angina guideline) [ ]II. Hemodynamic instability [ ]III. Angina needing acute intervention as indicated by ALL of the following( 11)(12): [ ]a) Unstable angina is present as indicated by angina that is ANY ONE of the following: [ ]i) New onset [ ]ii) Nocturnal [ ]iii) Prolonged at rest [ ]iv) Progressive [ ]b) Angina warrants acute intervention as indicated by ANY ONE of the following: [ ]i) Recurrent angina (e.g, not responding as previously to treatment) [ ]ii) Angina at rest or with low-level activities despite initial medical therapy [ ]iii) New or presumably new ST-segment depression on ECG [ ]iv) Signs or symptoms of heart failure (eg, dyspnea, pulmonary edema) [ ]v) New or worsening mitral regurgitation [ ]vi) Hemodynamic instability [ ]vii) Dangerous arrhythmia (eg, sustained ventricular tachycardia) [ ]viii) History of percutaneous coronary intervention within 6 months [ ]ix) History of coronary artery bypass graft surgery [ ]x) TATYANA risk score of 2 or greater[A] [ ]xi) History of Diabetes(14) [ ]xii) High-risk cardiac ischemia findings on noninvasive testing (e.g, echocardiogram, treadmill testing, nuclear scan) [ ]xiii) Chronic renal insufficiency (ie, estimated GFR less than 60 mL/min/1.732m) [ ]xiv) Left ventricular ejection fraction less than 40% [ ]IV. Evidence of CA (eg, cardiac biomarkers positive, ST-segment elevation on ECG) also use Myocardial Infarction Criteria Form. [ ]V. Pulmonary edema [ ]. Respiratory distress [ ]VII. Chest pain indicative of serious diagnosis other than coronary artery disease (eg, aortic dissection) [X]VIII. Contraindications and/or Inappropriate clinical situations for Observational Care in patients with Chest Pain, when ANY ONE of the following is required: [ ]a) Patient with risk factor for pulmonary embolism, acute coronary syndrome and myocardial infarction (18) [ ]b) Patient with Pulmonary embolism require an average LOS of 4.3 days, therefore emergency department observation management is inappropriate 18,23 [ ]c) Painful condition/s in the elderly, have the highest rate of recidivism after emergency department observation management (10.8%) 20,21,22 [X]d) Elevated cardiac biomarker requires intensive and exhaustive care (19) [ ]IX. General contraindications and/or Inappropriate clinical situations for Observational Care in patients with Chest Pain, when ANY ONE of the following is required: [ ]a) Prediction of prolongation of LOS based on ANY ONE of the following may be considered as a contraindication for observational care 2, 3, 4, 5, 6, 7, 8, 9, 10, 11 [ ]i) Age > 65 yrs. [ ]ii) Patient arriving by ambulance [ ]iii) Patient with high acuity [ ]iv) Patient requiring vital sign monitoring [ ]v) Patient on IV medication [ ]b) Systolic blood pressures 180mmHg 3,12 [ ]c) Patient with altered mental status including delirium and other alteration of consciousness, (3) [ ]d) Patient whose discharge disposition will be to a long-term home or rehabilitation home should not be managed in Emergency Department Observation Unit. CMS rule requires 3 days hospital stay before such placement. 3,13 [ ]e) Patient with failure to thrive due to broad array of etiologies 3,16,17 [ ]f) Inability to ambulate 3,14 Extended stay beyond goal length of stay may be needed for (1)(28): [ ]a) Specific condition diagnosed after evaluation (eg, pulmonary embolism, aortic dissection) [ ]b) Unstable angina [ ]c) Continued suspicion of acute coronary syndrome with inability to complete needed cardiac evaluation (eg, patient clinically unable to undergo stress testing) [ ]d) Myocardial infarction (Contents from ANGINA and CHEST PAIN clinical indications for admission to inpatient care have been integrated in this form) The original [facility] content created by [employer] has been revised. The portions of the content which have been revised are identified through the use of italic text or in bold, and [facility] has neither reviewed nor approved the modified material. All other unmodified content is copyright [facility]. Please see references footnoted in the original [facility] [employer] edition 2016 Admission Criteria Met?: Yes JOSSE JOHNS May 03, 2017 00:10
[2017-05-03 02:55] VITALS: BP 148/72
[2017-05-03 05:17] LABS: BASO # 0.1 x10^3/uL (0.0-0.2); BASO % 1 % (0-3); EOS % 6 % (0-3); HEMATOCRIT 34.3 % (36.0-47.0); HEMOGLOBIN 11.7 g/dL (12.0-15.5); LYMPH # 1.2 x10^3/uL (1.0-4.8); LYMPH % 18 % (24-48); MEAN CORPUSCULAR HEMOGLOBIN 34 pg (25-35); MEAN CORPUSCULAR HGB CONC 34 g/dL (31-37); MEAN CORPUSCULAR VOLUME 99 fL (79-100); MONO % 7 % (0-9); NEUT % 69 % (31-73); PLATELET COUNT 213 x10^3/uL (140-400); RED BLOOD COUNT 3.46 x10^6/uL (3.50-5.40); RED CELL DISTRIBUTION WIDTH 13.5 % (11.5-14.5); WHITE BLOOD COUNT 6.4 x10^3/uL (4.0-11.0)
[2017-05-03 05:54] LABS: ALBUMIN 2.9 g/dL (3.4-5.0); CALCIUM 8.7 mg/dL (8.5-10.1); GFR 53.1; POTASSIUM 3.6 mmol/L (3.5-5.1); TOTAL BILIRUBIN 0.5 mg/dL (0.2-1.0); TOTAL PROTEIN 5.9 g/dL (6.4-8.2)
[2017-05-03] MEDS: LEVOTHYROXINE 25 MCG TABLET. PO SCH (06:18)
[2017-05-03 07:40] VITALS: BP 155/75
[2017-05-03] MEDS: IPRATRPIUM/ALBUTEROL 0.5/2.5MG 3 ML NEBU. NEB SCH ×4 (07:59→19:48)
[2017-05-03] MEDS: BUDESONIDE 0.5 MG/2 ML NEBU. NEB SCH ×2 (07:59→19:49)
[2017-05-03] MEDS: CARVEDILOL 3.125 MG TABLET. PO SCH ×2 (08:32→17:24)
[2017-05-03] MEDS: ASPIRIN CHEWABLE 81 MG TABLET. PO SCH (08:32)
[2017-05-03] MEDS: CHOLECALCIFEROL (VITAMIN D3) 1,000 UNIT TABLET PO SCH (08:33)
[2017-05-03] MEDS: EZETIMIBE 10 MG TABLET. PO SCH (08:33)
[2017-05-03] MEDS: ALLOPURINOL 100 MG TABLET. PO SCH (08:33)
[2017-05-03] MEDS: MULTIVITAMIN with MINERAL TABLET. PO SCH (08:33)
[2017-05-03 11:10] VITALS: BP 151/69
[2017-05-03] MEDS ORDERED: IBUPROFEN 400 MG TABLET. PO PRN (11:15)
--- NOTE | 2017-05-03 11:40 | PDOC ---
PROGRESS NOTES Chief Complaint Chief Complaint Worsening cough ASSESSMENT AND PLAN: 1. Acute cough with sputum production: CXR clear; probable bronchitis; on empiric Abx, nebs, suppl O2. sputum Gram stain with mixed radha, no WBC 2. Chronic cough: ?MILANA-I related. hold lisinopril. 3. HTN urgency: resolved. continue home meds except MILANA-I. on low dose coreg ; increase if needed 4. CHF: Chronic systolic. current echo with EF 25-30%. no signs of fluid overload 5. CAD: hx CABG. no acute issues (min elevated troponin most likely related to 3.) cont home meds 6. Dispo: OT/PT eval; anticipate need for rehab. SW following History of Present Illness History of Present Illness breathing better, but still feels weak. wants to stay in the hospital "until i' m completely well" Vitals Vitals Vital Signs Date Time Temp Pulse Resp B/P (MAP) Pulse Ox O2 Delivery O2 Flow Rate FiO2 05/03/17 08:32 69 155/75 05/03/17 08:00 Room Air 05/03/17 08:00 94 05/03/17 07:40 98.6 20 98.6 Physical Exam General: Alert, Oriented X3, No acute distress Heart: Regular rate Lungs: Clear Abdomen: Normal bowel sounds, Soft Extremities: No clubbing Skin: No rashes Labs LABS Laboratory Tests Test 05/03/17 04:40 White Blood Count 6.4 x10^3/uL (4.0-11.0) Red Blood Count 3.46 x10^6/uL (3.50-5.40) Hemoglobin 11.7 g/dL (12.0-15.5) Hematocrit 34.3 % (36.0-47.0) Mean Corpuscular Volume 99 fL (79-100) Mean Corpuscular Hemoglobin 34 pg (25-35) Mean Corpuscular Hemoglobin Concent 34 g/dL (31-37) Red Cell Distribution Width 13.5 % (11.5-14.5) Platelet Count 213 x10^3/uL (140-400) Neutrophils (%) (Auto) 69 % (31-73) Lymphocytes (%) (Auto) 18 % (24-48) Monocytes (%) (Auto) 7 % (0-9) Eosinophils (%) (Auto) 6 % (0-3) Basophils (%) (Auto) 1 % (0-3) Neutrophils # (Auto) 4.4 x10^3uL (1.8-7.7) Lymphocytes # (Auto) 1.2 x10^3/uL (1.0-4.8) Monocytes # (Auto) 0.4 x10^3/uL (0.0-1.1) Eosinophils # (Auto) 0.4 x10^3/uL (0.0-0.7) Basophils # (Auto) 0.1 x10^3/uL (0.0-0.2) Sodium Level 142 mmol/L (136-145) Potassium Level 3.6 mmol/L (3.5-5.1) Chloride Level 106 mmol/L (98-107) Carbon Dioxide Level 25 mmol/L (21-32) Anion Gap 11 (6-14) Blood Urea Nitrogen 17 mg/dL (7-20) Creatinine 1.0 mg/dL (0.6-1.0) Estimated GFR (Cockcroft-Gault) 53.1 BUN/Creatinine Ratio 17 (6-20) Glucose Level 121 mg/dL (70-99) Calcium Level 8.7 mg/dL (8.5-10.1) Total Bilirubin 0.5 mg/dL (0.2-1.0) Aspartate Amino Transf (AST/SGOT) 16 U/L (15-37) Alanine Aminotransferase (ALT/SGPT) 13 U/L (14-59) Alkaline Phosphatase 68 U/L (46-116) Total Protein 5.9 g/dL (6.4-8.2) Albumin 2.9 g/dL (3.4-5.0) Albumin/Globulin Ratio 1.0 (1.0-1.7) ALEJANDRA HEATH MD May 03, 2017 11:40
[2017-05-03] MEDS: BENZONATATE 100 MG CAPSULE. PO SCH ×3 (12:11→20:55)
--- NOTE | 2017-05-03 13:21 | PDOC ---
PULMONARY PROGRESS NOTES Subjective still cough with yellow sputum Vitals Vital Signs Date Time Temp Pulse Resp B/P (MAP) Pulse Ox O2 Delivery O2 Flow Rate FiO2 05/03/17 12:11 Room Air 05/03/17 11:10 98.0 66 20 151/69 (96) 95 98.0 General: Alert, Oriented X4, No acute distress Lungs: Clear Cardiovascular: S1 Abdomen: Soft Neuro Exam: Alert Extremities: No Edema Skin: Warm Labs Laboratory Tests Test 05/01/17 15:55 05/02/17 04:00 05/03/17 04:40 Troponin I Quantitative 0.081 ng/mL (0.000-0.055) White Blood Count 7.3 x10^3/uL (4.0-11.0) 6.4 x10^3/uL (4.0-11.0) Red Blood Count 3.51 x10^6/uL (3.50-5.40) 3.46 x10^6/uL (3.50-5.40) Hemoglobin 11.9 g/dL (12.0-15.5) 11.7 g/dL (12.0-15.5) Hematocrit 35.0 % (36.0-47.0) 34.3 % (36.0-47.0) Mean Corpuscular Volume 100 fL (79-100) 99 fL (79-100) Mean Corpuscular Hemoglobin 34 pg (25-35) 34 pg (25-35) Mean Corpuscular Hemoglobin Concent 34 g/dL (31-37) 34 g/dL (31-37) Red Cell Distribution Width 13.4 % (11.5-14.5) 13.5 % (11.5-14.5) Platelet Count 219 x10^3/uL (140-400) 213 x10^3/uL (140-400) Neutrophils (%) (Auto) 72 % (31-73) 69 % (31-73) Lymphocytes (%) (Auto) 15 % (24-48) 18 % (24-48) Monocytes (%) (Auto) 5 % (0-9) 7 % (0-9) Eosinophils (%) (Auto) 6 % (0-3) 6 % (0-3) Basophils (%) (Auto) 1 % (0-3) 1 % (0-3) Neutrophils # (Auto) 5.3 x10^3uL (1.8-7.7) 4.4 x10^3uL (1.8-7.7) Lymphocytes # (Auto) 1.1 x10^3/uL (1.0-4.8) 1.2 x10^3/uL (1.0-4.8) Monocytes # (Auto) 0.4 x10^3/uL (0.0-1.1) 0.4 x10^3/uL (0.0-1.1) Eosinophils # (Auto) 0.5 x10^3/uL (0.0-0.7) 0.4 x10^3/uL (0.0-0.7) Basophils # (Auto) 0.1 x10^3/uL (0.0-0.2) 0.1 x10^3/uL (0.0-0.2) Sodium Level 143 mmol/L (136-145) 142 mmol/L (136-145) Potassium Level 3.5 mmol/L (3.5-5.1) 3.6 mmol/L (3.5-5.1) Chloride Level 107 mmol/L (98-107) 106 mmol/L (98-107) Carbon Dioxide Level 27 mmol/L (21-32) 25 mmol/L (21-32) Anion Gap 9 (6-14) 11 (6-14) Blood Urea Nitrogen 22 mg/dL (7-20) 17 mg/dL (7-20) Creatinine 1.1 mg/dL (0.6-1.0) 1.0 mg/dL (0.6-1.0) Estimated GFR (Cockcroft-Gault) 47.6 53.1 BUN/Creatinine Ratio 20 (6-20) 17 (6-20) Glucose Level 84 mg/dL (70-99) 121 mg/dL (70-99) Calcium Level 8.1 mg/dL (8.5-10.1) 8.7 mg/dL (8.5-10.1) Total Bilirubin 0.7 mg/dL (0.2-1.0) 0.5 mg/dL (0.2-1.0) Aspartate Amino Transf (AST/SGOT) 19 U/L (15-37) 16 U/L (15-37) Alanine Aminotransferase (ALT/SGPT) 15 U/L (14-59) 13 U/L (14-59) Alkaline Phosphatase 67 U/L (46-116) 68 U/L (46-116) Total Protein 6.3 g/dL (6.4-8.2) 5.9 g/dL (6.4-8.2) Albumin 3.0 g/dL (3.4-5.0) 2.9 g/dL (3.4-5.0) Albumin/Globulin Ratio 0.9 (1.0-1.7) 1.0 (1.0-1.7) Laboratory Tests Test 05/03/17 04:40 White Blood Count 6.4 x10^3/uL (4.0-11.0) Red Blood Count 3.46 x10^6/uL (3.50-5.40) Hemoglobin 11.7 g/dL (12.0-15.5) Hematocrit 34.3 % (36.0-47.0) Mean Corpuscular Volume 99 fL (79-100) Mean Corpuscular Hemoglobin 34 pg (25-35) Mean Corpuscular Hemoglobin Concent 34 g/dL (31-37) Red Cell Distribution Width 13.5 % (11.5-14.5) Platelet Count 213 x10^3/uL (140-400) Neutrophils (%) (Auto) 69 % (31-73) Lymphocytes (%) (Auto) 18 % (24-48) Monocytes (%) (Auto) 7 % (0-9) Eosinophils (%) (Auto) 6 % (0-3) Basophils (%) (Auto) 1 % (0-3) Neutrophils # (Auto) 4.4 x10^3uL (1.8-7.7) Lymphocytes # (Auto) 1.2 x10^3/uL (1.0-4.8) Monocytes # (Auto) 0.4 x10^3/uL (0.0-1.1) Eosinophils # (Auto) 0.4 x10^3/uL (0.0-0.7) Basophils # (Auto) 0.1 x10^3/uL (0.0-0.2) Sodium Level 142 mmol/L (136-145) Potassium Level 3.6 mmol/L (3.5-5.1) Chloride Level 106 mmol/L (98-107) Carbon Dioxide Level 25 mmol/L (21-32) Anion Gap 11 (6-14) Blood Urea Nitrogen 17 mg/dL (7-20) Creatinine 1.0 mg/dL (0.6-1.0) Estimated GFR (Cockcroft-Gault) 53.1 BUN/Creatinine Ratio 17 (6-20) Glucose Level 121 mg/dL (70-99) Calcium Level 8.7 mg/dL (8.5-10.1) Total Bilirubin 0.5 mg/dL (0.2-1.0) Aspartate Amino Transf (AST/SGOT) 16 U/L (15-37) Alanine Aminotransferase (ALT/SGPT) 13 U/L (14-59) Alkaline Phosphatase 68 U/L (46-116) Total Protein 5.9 g/dL (6.4-8.2) Albumin 2.9 g/dL (3.4-5.0) Albumin/Globulin Ratio 1.0 (1.0-1.7) Medications Active Scripts Medications Dose Route/Sig Max Daily Dose Days Date Category Simvastatin 20 Mg Tablet 1 Tab PO QHS 05/01/17 Reported Ramipril 2.5 Mg Capsule 1 Cap PO DAILY 05/01/17 Reported [place] 5-325 Tablet (Acetaminophen/Hydrocodone Bitart) 1 Each Tablet 1 Tab PO Q4-6HRS 05/01/17 Reported Multivitamins (Multivitamin) 1 Each Tablet 1 Tab PO DAILY 05/01/17 Reported Melatonin 3 Mg Tablet 6 Mg PO 05/01/17 Reported Levothyroxine Sodium 25 Mcg Tablet 1 Tab PO DAILY 05/01/17 Reported Zetia (Ezetimibe) 10 Mg Tablet 1 Tab PO DAILY 05/01/17 Reported Vitamin D3 (Cholecalciferol (Vitamin D3)) 1,000 Unit Tablet 1 Tab PO DAILY 05/01/17 Reported Cefdinir 300 Mg Capsule 1 Cap PO BID 05/01/17 Reported Carvedilol 3.125 Mg Tablet 1 Tab PO BID 05/01/17 Reported Calcium Carbonate 500 Mg Tablet 500 Mg PO PRN TID 05/01/17 Reported Aspirin 81 Mg Tab.chew 1 Tab PO DAILY 05/01/17 Reported Analgesic [place] (Methyl Salicylate/Menthol) 28 Gm Oint...g. 1 Gm TP QHS 05/01/17 Reported Allopurinol 100 Mg Tablet 1 Tab PO DAILY 05/01/17 Reported Impression . 1. Acute on chronic cough, suspect due to acute Bronchitis, ? mild aspiration POA(vomited once) 2. No sig. smoking history 3. Clear CXR 4. Mild chronic cough/ possible MILANA induced Plan . 1. sputum for c/s 2. Empiric antibiotic 3. Nebs, including steroids nebs 4. Consider changing lisinopril to different agent if cough does not resolve with above 5. add PO steroids ROLANDO MANCINI MD May 03, 2017 13:21
[2017-05-03] MEDS: predniSONE 20 MG TABLET PO SCH (13:54)
[2017-05-03 19:00] VITALS: BP 148/64
[2017-05-03] MEDS: HYDROcodone/APAP 5/325MG 1 TAB TABLET PO PRN ×2 (20:06→23:35)
[2017-05-03] MEDS: SIMVASTATIN 20 MG TABLET PO SCH (20:55)
[2017-05-03] MEDS: METHYL SALICYLATE/MENTHOL TOPICAL OINTMENT 29GM TUBE. TP SCH (20:55)
[2017-05-03 23:19] VITALS: BP 131/61
[2017-05-04] VITALS (7 sets, daily range): BP systolic 128–158; BP diastolic 60–79
[2017-05-04 00:50] LABS: BASO % 0 % (0-3); EOS % 0 % (0-3); HEMATOCRIT 35.9 % (36.0-47.0); HEMOGLOBIN 12.4 g/dL (12.0-15.5); LYMPH # 0.8 x10^3/uL (1.0-4.8); LYMPH % 10 % (24-48); MEAN CORPUSCULAR HEMOGLOBIN 34 pg (25-35); MEAN CORPUSCULAR HGB CONC 35 g/dL (31-37); MEAN CORPUSCULAR VOLUME 98 fL (79-100); MONO % 3 % (0-9); NEUT % 87 % (31-73); PLATELET COUNT 246 x10^3/uL (140-400); RED BLOOD COUNT 3.65 x10^6/uL (3.50-5.40); RED CELL DISTRIBUTION WIDTH 12.8 % (11.5-14.5); WHITE BLOOD COUNT 8.1 x10^3/uL (4.0-11.0)
[2017-05-04 01:03] LABS: MAGNESIUM 1.9 mg/dL (1.8-2.4); POTASSIUM 3.7 mmol/L (3.5-5.1)
[2017-05-04 01:12] LABS: ALBUMIN 3.3 g/dL (3.4-5.0); ALBUMIN/GLOBULIN RATIO 1.1 (1.0-1.7); CALCIUM 9.1 mg/dL (8.5-10.1); CREATININE 1.2 mg/dL (0.6-1.0); TOTAL BILIRUBIN 0.5 mg/dL (0.2-1.0); TOTAL PROTEIN 6.4 g/dL (6.4-8.2)
[2017-05-04 01:13] LABS: POTASSIUM 3.7 mmol/L (3.5-5.1)
[2017-05-04] MEDS: LEVOTHYROXINE 25 MCG TABLET. PO SCH (06:12)
[2017-05-04] MEDS: IPRATRPIUM/ALBUTEROL 0.5/2.5MG 3 ML NEBU. NEB SCH ×4 (07:18→19:26)
[2017-05-04] MEDS: BUDESONIDE 0.5 MG/2 ML NEBU. NEB SCH ×2 (07:18→19:26)
[2017-05-04] MEDS: ALLOPURINOL 100 MG TABLET. PO SCH (08:37)
[2017-05-04] MEDS: BENZONATATE 100 MG CAPSULE. PO SCH ×3 (08:37→20:28)
[2017-05-04] MEDS: MULTIVITAMIN with MINERAL TABLET. PO SCH (08:37)
[2017-05-04] MEDS: CHOLECALCIFEROL (VITAMIN D3) 1,000 UNIT TABLET PO SCH (08:38)
[2017-05-04] MEDS: ASPIRIN CHEWABLE 81 MG TABLET. PO SCH (08:38)
[2017-05-04] MEDS: CARVEDILOL 3.125 MG TABLET. PO SCH ×2 (08:38→16:57)
[2017-05-04] MEDS: EZETIMIBE 10 MG TABLET. PO SCH (08:39)
[2017-05-04] MEDS: predniSONE 20 MG TABLET PO SCH (08:39)
--- NOTE | 2017-05-04 12:03 | PDOC ---
PULMONARY PROGRESS NOTES Subjective still cough with yellow sputum Vitals Vital Signs Date Time Temp Pulse Resp B/P (MAP) Pulse Ox O2 Delivery O2 Flow Rate FiO2 05/04/17 11:16 Room Air 05/04/17 08:38 72 158/73 05/04/17 07:25 93 05/04/17 07:00 97.6 18 97.6 General: Alert, Oriented X4, No acute distress Lungs: Wheezing Cardiovascular: S1 Abdomen: Soft Neuro Exam: Alert Extremities: No Edema Skin: Warm Labs Laboratory Tests Test 05/03/17 04:40 05/04/17 00:40 White Blood Count 6.4 x10^3/uL (4.0-11.0) 8.1 x10^3/uL (4.0-11.0) Red Blood Count 3.46 x10^6/uL (3.50-5.40) 3.65 x10^6/uL (3.50-5.40) Hemoglobin 11.7 g/dL (12.0-15.5) 12.4 g/dL (12.0-15.5) Hematocrit 34.3 % (36.0-47.0) 35.9 % (36.0-47.0) Mean Corpuscular Volume 99 fL (79-100) 98 fL (79-100) Mean Corpuscular Hemoglobin 34 pg (25-35) 34 pg (25-35) Mean Corpuscular Hemoglobin Concent 34 g/dL (31-37) 35 g/dL (31-37) Red Cell Distribution Width 13.5 % (11.5-14.5) 12.8 % (11.5-14.5) Platelet Count 213 x10^3/uL (140-400) 246 x10^3/uL (140-400) Neutrophils (%) (Auto) 69 % (31-73) 87 % (31-73) Lymphocytes (%) (Auto) 18 % (24-48) 10 % (24-48) Monocytes (%) (Auto) 7 % (0-9) 3 % (0-9) Eosinophils (%) (Auto) 6 % (0-3) 0 % (0-3) Basophils (%) (Auto) 1 % (0-3) 0 % (0-3) Neutrophils # (Auto) 4.4 x10^3uL (1.8-7.7) 7.0 x10^3uL (1.8-7.7) Lymphocytes # (Auto) 1.2 x10^3/uL (1.0-4.8) 0.8 x10^3/uL (1.0-4.8) Monocytes # (Auto) 0.4 x10^3/uL (0.0-1.1) 0.2 x10^3/uL (0.0-1.1) Eosinophils # (Auto) 0.4 x10^3/uL (0.0-0.7) 0.0 x10^3/uL (0.0-0.7) Basophils # (Auto) 0.1 x10^3/uL (0.0-0.2) 0.0 x10^3/uL (0.0-0.2) Sodium Level 142 mmol/L (136-145) 140 mmol/L (136-145) Potassium Level 3.6 mmol/L (3.5-5.1) 3.7 mmol/L (3.5-5.1) Chloride Level 106 mmol/L (98-107) 104 mmol/L (98-107) Carbon Dioxide Level 25 mmol/L (21-32) 25 mmol/L (21-32) Anion Gap 11 (6-14) 11 (6-14) Blood Urea Nitrogen 17 mg/dL (7-20) 16 mg/dL (7-20) Creatinine 1.0 mg/dL (0.6-1.0) 1.2 mg/dL (0.6-1.0) Estimated GFR (Cockcroft-Gault) 53.1 43.0 BUN/Creatinine Ratio 17 (6-20) 13 (6-20) Glucose Level 121 mg/dL (70-99) 174 mg/dL (70-99) Calcium Level 8.7 mg/dL (8.5-10.1) 9.1 mg/dL (8.5-10.1) Total Bilirubin 0.5 mg/dL (0.2-1.0) 0.5 mg/dL (0.2-1.0) Aspartate Amino Transf (AST/SGOT) 16 U/L (15-37) 17 U/L (15-37) Alanine Aminotransferase (ALT/SGPT) 13 U/L (14-59) 14 U/L (14-59) Alkaline Phosphatase 68 U/L (46-116) 74 U/L (46-116) Total Protein 5.9 g/dL (6.4-8.2) 6.4 g/dL (6.4-8.2) Albumin 2.9 g/dL (3.4-5.0) 3.3 g/dL (3.4-5.0) Albumin/Globulin Ratio 1.0 (1.0-1.7) 1.1 (1.0-1.7) Magnesium Level 1.9 mg/dL (1.8-2.4) Thyroid Stimulating Hormone (TSH) 3.362 uIU/mL (0.358-3.74) Laboratory Tests Test 05/04/17 00:40 White Blood Count 8.1 x10^3/uL (4.0-11.0) Red Blood Count 3.65 x10^6/uL (3.50-5.40) Hemoglobin 12.4 g/dL (12.0-15.5) Hematocrit 35.9 % (36.0-47.0) Mean Corpuscular Volume 98 fL (79-100) Mean Corpuscular Hemoglobin 34 pg (25-35) Mean Corpuscular Hemoglobin Concent 35 g/dL (31-37) Red Cell Distribution Width 12.8 % (11.5-14.5) Platelet Count 246 x10^3/uL (140-400) Neutrophils (%) (Auto) 87 % (31-73) Lymphocytes (%) (Auto) 10 % (24-48) Monocytes (%) (Auto) 3 % (0-9) Eosinophils (%) (Auto) 0 % (0-3) Basophils (%) (Auto) 0 % (0-3) Neutrophils # (Auto) 7.0 x10^3uL (1.8-7.7) Lymphocytes # (Auto) 0.8 x10^3/uL (1.0-4.8) Monocytes # (Auto) 0.2 x10^3/uL (0.0-1.1) Eosinophils # (Auto) 0.0 x10^3/uL (0.0-0.7) Basophils # (Auto) 0.0 x10^3/uL (0.0-0.2) Sodium Level 140 mmol/L (136-145) Potassium Level 3.7 mmol/L (3.5-5.1) Chloride Level 104 mmol/L (98-107) Carbon Dioxide Level 25 mmol/L (21-32) Anion Gap 11 (6-14) Blood Urea Nitrogen 16 mg/dL (7-20) Creatinine 1.2 mg/dL (0.6-1.0) Estimated GFR (Cockcroft-Gault) 43.0 BUN/Creatinine Ratio 13 (6-20) Glucose Level 174 mg/dL (70-99) Calcium Level 9.1 mg/dL (8.5-10.1) Magnesium Level 1.9 mg/dL (1.8-2.4) Total Bilirubin 0.5 mg/dL (0.2-1.0) Aspartate Amino Transf (AST/SGOT) 17 U/L (15-37) Alanine Aminotransferase (ALT/SGPT) 14 U/L (14-59) Alkaline Phosphatase 74 U/L (46-116) Total Protein 6.4 g/dL (6.4-8.2) Albumin 3.3 g/dL (3.4-5.0) Albumin/Globulin Ratio 1.1 (1.0-1.7) Thyroid Stimulating Hormone (TSH) 3.362 uIU/mL (0.358-3.74) Medications Active Scripts Medications Dose Route/Sig Max Daily Dose Days Date Category Simvastatin 20 Mg Tablet 1 Tab PO QHS 05/01/17 Reported Ramipril 2.5 Mg Capsule 1 Cap PO DAILY 05/01/17 Reported [place] 5-325 Tablet (Acetaminophen/Hydrocodone Bitart) 1 Each Tablet 1 Tab PO Q4-6HRS 05/01/17 Reported Multivitamins (Multivitamin) 1 Each Tablet 1 Tab PO DAILY 05/01/17 Reported Melatonin 3 Mg Tablet 6 Mg PO 05/01/17 Reported Levothyroxine Sodium 25 Mcg Tablet 1 Tab PO DAILY 05/01/17 Reported Zetia (Ezetimibe) 10 Mg Tablet 1 Tab PO DAILY 05/01/17 Reported Vitamin D3 (Cholecalciferol (Vitamin D3)) 1,000 Unit Tablet 1 Tab PO DAILY 05/01/17 Reported Cefdinir 300 Mg Capsule 1 Cap PO BID 05/01/17 Reported Carvedilol 3.125 Mg Tablet 1 Tab PO BID 05/01/17 Reported Calcium Carbonate 500 Mg Tablet 500 Mg PO PRN TID 05/01/17 Reported Aspirin 81 Mg Tab.chew 1 Tab PO DAILY 05/01/17 Reported Analgesic [place] (Methyl Salicylate/Menthol) 28 Gm Oint...g. 1 Gm TP QHS 05/01/17 Reported Allopurinol 100 Mg Tablet 1 Tab PO DAILY 05/01/17 Reported Impression . 1. Acute on chronic cough, suspect due to acute Bronchitis, ? mild aspiration POA(vomited once) 2. No sig. smoking history 3. Clear CXR 4. Mild chronic cough/ possible MILANA induced Plan . 1. sputum for c/s with no growth so far 2. Empiric antibiotic, add doxy today 3. Nebs, including steroids nebs 4. Consider changing lisinopril to different agent if cough does not resolve with above 5. PO steroids ROLANDO MANCINI MD May 04, 2017 12:03
--- NOTE | 2017-05-04 13:26 | PDOC ---
PROGRESS NOTES Chief Complaint Chief Complaint Worsening cough ASSESSMENT AND PLAN: 1. Acute cough with sputum production: CXR clear; probable bronchitis; on empiric Abx, nebs, suppl O2. sputum Gram stain with mixed radha, no WBC 2. Chronic cough: ?MILANA-I related. hold lisinopril. 3. HTN urgency: resolved. continue home meds except MILANA-I. on low dose coreg ; increase if needed 4. CHF: Chronic systolic and diastolic. current echo with EF 25-30%. no signs of fluid overload 5. CAD: hx CABG. no acute issues (min elevated troponin most likely related to 3.) cont home meds CKD3 MILD MALnutrition plan: fu with pulm cough meds on prednisone po daily add doxy no intervention from card need SW help for discharge hot flush possibly is due to steroid History of Present Illness History of Present Illness wants to stay in the hospital "until i'm completely well living in a hotel with her son currently many Social issues as per nurse an was refused by SNF many times given son issues too said hot flush since yesterday and sob when walked from bed to bathroom but not need o2 Vitals Vitals Vital Signs Date Time Temp Pulse Resp B/P (MAP) Pulse Ox O2 Delivery O2 Flow Rate FiO2 05/04/17 11:16 Room Air 05/04/17 11:00 97.9 75 18 137/60 (85) 95 97.9 Physical Exam General: Alert, Oriented X3, No acute distress Heart: Regular rate Lungs: Wheezing Abdomen: Normal bowel sounds, Soft Extremities: No clubbing Skin: No rashes Labs LABS Laboratory Tests Test 05/04/17 00:40 White Blood Count 8.1 x10^3/uL (4.0-11.0) Red Blood Count 3.65 x10^6/uL (3.50-5.40) Hemoglobin 12.4 g/dL (12.0-15.5) Hematocrit 35.9 % (36.0-47.0) Mean Corpuscular Volume 98 fL (79-100) Mean Corpuscular Hemoglobin 34 pg (25-35) Mean Corpuscular Hemoglobin Concent 35 g/dL (31-37) Red Cell Distribution Width 12.8 % (11.5-14.5) Platelet Count 246 x10^3/uL (140-400) Neutrophils (%) (Auto) 87 % (31-73) Lymphocytes (%) (Auto) 10 % (24-48) Monocytes (%) (Auto) 3 % (0-9) Eosinophils (%) (Auto) 0 % (0-3) Basophils (%) (Auto) 0 % (0-3) Neutrophils # (Auto) 7.0 x10^3uL (1.8-7.7) Lymphocytes # (Auto) 0.8 x10^3/uL (1.0-4.8) Monocytes # (Auto) 0.2 x10^3/uL (0.0-1.1) Eosinophils # (Auto) 0.0 x10^3/uL (0.0-0.7) Basophils # (Auto) 0.0 x10^3/uL (0.0-0.2) Sodium Level 140 mmol/L (136-145) Potassium Level 3.7 mmol/L (3.5-5.1) Chloride Level 104 mmol/L (98-107) Carbon Dioxide Level 25 mmol/L (21-32) Anion Gap 11 (6-14) Blood Urea Nitrogen 16 mg/dL (7-20) Creatinine 1.2 mg/dL (0.6-1.0) Estimated GFR (Cockcroft-Gault) 43.0 BUN/Creatinine Ratio 13 (6-20) Glucose Level 174 mg/dL (70-99) Calcium Level 9.1 mg/dL (8.5-10.1) Magnesium Level 1.9 mg/dL (1.8-2.4) Total Bilirubin 0.5 mg/dL (0.2-1.0) Aspartate Amino Transf (AST/SGOT) 17 U/L (15-37) Alanine Aminotransferase (ALT/SGPT) 14 U/L (14-59) Alkaline Phosphatase 74 U/L (46-116) Total Protein 6.4 g/dL (6.4-8.2) Albumin 3.3 g/dL (3.4-5.0) Albumin/Globulin Ratio 1.1 (1.0-1.7) Thyroid Stimulating Hormone (TSH) 3.362 uIU/mL (0.358-3.74) Review of Systems Review of Systems no fever, chills, or chest pain Assessment and Plan Assessmemt and Plan Problems Medical Problems: (1) Cough Status: Acute (2) Elevated troponin Status: Acute Problems: Comment Review of Relevant I have reviewed the following items amy (where applicable) has been applied. Labs Laboratory Tests Test 05/03/17 04:40 05/04/17 00:40 White Blood Count 6.4 x10^3/uL (4.0-11.0) 8.1 x10^3/uL (4.0-11.0) Red Blood Count 3.46 x10^6/uL (3.50-5.40) 3.65 x10^6/uL (3.50-5.40) Hemoglobin 11.7 g/dL (12.0-15.5) 12.4 g/dL (12.0-15.5) Hematocrit 34.3 % (36.0-47.0) 35.9 % (36.0-47.0) Mean Corpuscular Volume 99 fL (79-100) 98 fL (79-100) Mean Corpuscular Hemoglobin 34 pg (25-35) 34 pg (25-35) Mean Corpuscular Hemoglobin Concent 34 g/dL (31-37) 35 g/dL (31-37) Red Cell Distribution Width 13.5 % (11.5-14.5) 12.8 % (11.5-14.5) Platelet Count 213 x10^3/uL (140-400) 246 x10^3/uL (140-400) Neutrophils (%) (Auto) 69 % (31-73) 87 % (31-73) Lymphocytes (%) (Auto) 18 % (24-48) 10 % (24-48) Monocytes (%) (Auto) 7 % (0-9) 3 % (0-9) Eosinophils (%) (Auto) 6 % (0-3) 0 % (0-3) Basophils (%) (Auto) 1 % (0-3) 0 % (0-3) Neutrophils # (Auto) 4.4 x10^3uL (1.8-7.7) 7.0 x10^3uL (1.8-7.7) Lymphocytes # (Auto) 1.2 x10^3/uL (1.0-4.8) 0.8 x10^3/uL (1.0-4.8) Monocytes # (Auto) 0.4 x10^3/uL (0.0-1.1) 0.2 x10^3/uL (0.0-1.1) Eosinophils # (Auto) 0.4 x10^3/uL (0.0-0.7) 0.0 x10^3/uL (0.0-0.7) Basophils # (Auto) 0.1 x10^3/uL (0.0-0.2) 0.0 x10^3/uL (0.0-0.2) Sodium Level 142 mmol/L (136-145) 140 mmol/L (136-145) Potassium Level 3.6 mmol/L (3.5-5.1) 3.7 mmol/L (3.5-5.1) Chloride Level 106 mmol/L (98-107) 104 mmol/L (98-107) Carbon Dioxide Level 25 mmol/L (21-32) 25 mmol/L (21-32) Anion Gap 11 (6-14) 11 (6-14) Blood Urea Nitrogen 17 mg/dL (7-20) 16 mg/dL (7-20) Creatinine 1.0 mg/dL (0.6-1.0) 1.2 mg/dL (0.6-1.0) Estimated GFR (Cockcroft-Gault) 53.1 43.0 BUN/Creatinine Ratio 17 (6-20) 13 (6-20) Glucose Level 121 mg/dL (70-99) 174 mg/dL (70-99) Calcium Level 8.7 mg/dL (8.5-10.1) 9.1 mg/dL (8.5-10.1) Total Bilirubin 0.5 mg/dL (0.2-1.0) 0.5 mg/dL (0.2-1.0) Aspartate Amino Transf (AST/SGOT) 16 U/L (15-37) 17 U/L (15-37) Alanine Aminotransferase (ALT/SGPT) 13 U/L (14-59) 14 U/L (14-59) Alkaline Phosphatase 68 U/L (46-116) 74 U/L (46-116) Total Protein 5.9 g/dL (6.4-8.2) 6.4 g/dL (6.4-8.2) Albumin 2.9 g/dL (3.4-5.0) 3.3 g/dL (3.4-5.0) Albumin/Globulin Ratio 1.0 (1.0-1.7) 1.1 (1.0-1.7) Magnesium Level 1.9 mg/dL (1.8-2.4) Thyroid Stimulating Hormone (TSH) 3.362 uIU/mL (0.358-3.74) Laboratory Tests Test 05/04/17 00:40 White Blood Count 8.1 x10^3/uL (4.0-11.0) Red Blood Count 3.65 x10^6/uL (3.50-5.40) Hemoglobin 12.4 g/dL (12.0-15.5) Hematocrit 35.9 % (36.0-47.0) Mean Corpuscular Volume 98 fL (79-100) Mean Corpuscular Hemoglobin 34 pg (25-35) Mean Corpuscular Hemoglobin Concent 35 g/dL (31-37) Red Cell Distribution Width 12.8 % (11.5-14.5) Platelet Count 246 x10^3/uL (140-400) Neutrophils (%) (Auto) 87 % (31-73) Lymphocytes (%) (Auto) 10 % (24-48) Monocytes (%) (Auto) 3 % (0-9) Eosinophils (%) (Auto) 0 % (0-3) Basophils (%) (Auto) 0 % (0-3) Neutrophils # (Auto) 7.0 x10^3uL (1.8-7.7) Lymphocytes # (Auto) 0.8 x10^3/uL (1.0-4.8) Monocytes # (Auto) 0.2 x10^3/uL (0.0-1.1) Eosinophils # (Auto) 0.0 x10^3/uL (0.0-0.7) Basophils # (Auto) 0.0 x10^3/uL (0.0-0.2) Sodium Level 140 mmol/L (136-145) Potassium Level 3.7 mmol/L (3.5-5.1) Chloride Level 104 mmol/L (98-107) Carbon Dioxide Level 25 mmol/L (21-32) Anion Gap 11 (6-14) Blood Urea Nitrogen 16 mg/dL (7-20) Creatinine 1.2 mg/dL (0.6-1.0) Estimated GFR (Cockcroft-Gault) 43.0 BUN/Creatinine Ratio 13 (6-20) Glucose Level 174 mg/dL (70-99) Calcium Level 9.1 mg/dL (8.5-10.1) Magnesium Level 1.9 mg/dL (1.8-2.4) Total Bilirubin 0.5 mg/dL (0.2-1.0) Aspartate Amino Transf (AST/SGOT) 17 U/L (15-37) Alanine Aminotransferase (ALT/SGPT) 14 U/L (14-59) Alkaline Phosphatase 74 U/L (46-116) Total Protein 6.4 g/dL (6.4-8.2) Albumin 3.3 g/dL (3.4-5.0) Albumin/Globulin Ratio 1.1 (1.0-1.7) Thyroid Stimulating Hormone (TSH) 3.362 uIU/mL (0.358-3.74) Microbiology 05/02/17 Gram Stain - Final, Complete Medications Current Medications Albuterol Sulfate (Ventolin Neb Soln) 2.5 mg 1X ONCE NEB Last administered on 05/01/17 00:47; Start 05/01/17 at 00:30; Stop 05/01/17 at 00:31; Status DC Acetaminophen (Tylenol) 650 mg PRN Q4HRS PRN PO MILD PAIN / TEMP Last administered on 05/01/17 07:46; Start 05/01/17 at 07:00 Ondansetron HCl (Zofran) 4 mg PRN Q8HRS PRN IV NAUSEA/VOMITING; Start 05/01/17 at 07:00; Stop 05/02/17 at 06:59; Status DC Fentanyl Citrate (Fentanyl 2ml Vial) 50 mcg PRN Q2HR PRN IV PAIN; Start at 07:00; Stop 05/02/17 at 06:59; Status DC Sodium Chloride 1,000 ml @ 100 mls/hr Q10H IV Last administered on 05/01/17 07 :47; Start 05/01/17 at 06:56; Stop 05/02/17 at 06:55; Status DC Albuterol/ Ipratropium (Duoneb) 3 ml RTQID NEB Last administered on 05/01/17 19 :23; Start 05/01/17 at 08:00; Stop 05/02/17 at 07:59; Status DC Allopurinol (Zyloprim) 100 mg DAILY PO Last administered on 05/04/17 08:37; Start 05/01/17 at 13:00 Aspirin (Children'S Aspirin) 81 mg DAILY PO Last administered on 05/04/17 08: 38; Start 05/01/17 at 13:00 Calcium Carbonate/ Glycine (Oscal) 500 mg PRN TID PRN PO HEARTBURN.; Start 05/01 at 12:45 Carvedilol (Coreg) 3.125 mg BIDWMEALS PO Last administered on 05/04/17 08:38; Start 05/01/17 at 13:00 Vitamin D (Vitamin D3) 1,000 unit DAILY PO Last administered on 05/04/17 08:38 ; Start 05/01/17 at 13:00 EZETIMIBE (Zetia) 10 mg DAILY PO Last administered on 05/04/17 08:39; Start at 13:00 Acetaminophen/ Hydrocodone Bitart (Lortab 5/325) 1 tab PRN Q4HRS PRN PO MODERATE PAIN Last administered on 05/03/17 23:35; Start 05/01/17 at 12:45 Levothyroxine Sodium (Synthroid) 25 mcg DAILY06 PO Last administered on 06:12; Start 05/01/17 at 13:00 Multi-Ingredient Ointment (Analgesic [place]) 1 dinesh QHS TP Last administered on 20:55; Start 05/01/17 at 21:00 Simvastatin (Zocor) 20 mg QHS PO Last administered on 05/03/17 20:55; Start at 21:00 Multivitamins (Thera M Plus) 1 tab DAILY PO Last administered on 05/04/17 08: 37; Start 05/02/17 at 09:00 Lisinopril (Prinivil) 5 mg DAILY PO Last administered on 05/02/17 08:39; Start 05/01/17 at 13:00; Stop 05/03/17 at 00:40; Status DC Levofloxacin (Levaquin) 500 mg DAILY06 PO Last administered on 05/04/17 08:37 ; Start 05/02/17 at 11:00 Albuterol/ Ipratropium (Duoneb) 3 ml RTQID NEB Last administered on 05/04/17 11:16; Start 05/02/17 at 12:00 Budesonide (Pulmicort) 0.5 mg RTBID NEB Last administered on 05/04/17 07:18; Start 05/02/17 at 11:15 Ibuprofen (Motrin) 400 mg PRN Q8HRS PRN PO INFLAMMATION; Start 05/03/17 at 11: 15 Benzonatate (Tessalon Perle) 100 mg [id number] PO Last administered on 05/04/17 08 :37; Start 05/03/17 at 11:00 Prednisone (Prednisone) 30 mg DAILY PO Last administered on 05/04/17 08:39; Start 05/03/17 at 14:00 Doxycycline Hyclate (Vibra-Tab) 100 mg BID PO ; Start 05/04/17 at 12:30 Active Scripts Active Reported Simvastatin 20 Mg Tablet 1 Tab PO QHS Ramipril 2.5 Mg Capsule 1 Cap PO DAILY [place] 5-325 Tablet (Acetaminophen/Hydrocodone Bitart) 1 Each Tablet 1 Tab PO Q4- 6HRS Multivitamins (Multivitamin) 1 Each Tablet 1 Tab PO DAILY Melatonin 3 Mg Tablet 6 Mg PO Levothyroxine Sodium 25 Mcg Tablet 1 Tab PO DAILY Zetia (Ezetimibe) 10 Mg Tablet 1 Tab PO DAILY Vitamin D3 (Cholecalciferol (Vitamin D3)) 1,000 Unit Tablet 1 Tab PO DAILY Cefdinir 300 Mg Capsule 1 Cap PO BID Carvedilol 3.125 Mg Tablet 1 Tab PO BID Calcium Carbonate 500 Mg Tablet 500 Mg PO PRN TID Aspirin 81 Mg Tab.chew 1 Tab PO DAILY Analgesic [place] (Methyl Salicylate/Menthol) 28 Gm Oint...g. 1 Gm TP QHS Allopurinol 100 Mg Tablet 1 Tab PO DAILY Vitals/I & O Vital Sign - Last 24 Hours 05/03/17 05/03/17 05/03/17 05/03/17 15:04 15:43 17:24 19:00 Temp 98.6 98.6 Pulse 72 72 71 Resp 18 B/P (MAP) 151/69 148/64 (92) Pulse Ox 90 O2 Delivery Room Air Room Air 05/03/17 05/03/17 05/03/17 05/03/17 19:50 19:51 19:57 20:06 Pulse Ox 92 92 O2 Delivery Room Air Room Air Room Air Room Air 05/03/17 05/03/17 05/04/17 05/04/17 23:19 23:35 00:18 02:50 Temp 98.1 97.8 98.1 97.8 Pulse 71 77 69 Resp 18 18 B/P (MAP) 131/61 (84) 151/67 (95) 128/60 (82) Pulse Ox 89 90 O2 Delivery Room Air Room Air Room Air 05/04/17 05/04/17 05/04/17 05/04/17 07:00 07:20 07:25 08:00 Temp 97.6 97.6 Pulse 72 Resp 18 B/P (MAP) 158/73 (101) Pulse Ox 91 93 93 O2 Delivery Room Air Room Air Room Air Room Air 05/04/17 05/04/17 05/04/17 08:38 11:00 11:16 Temp 97.9 97.9 Pulse 72 75 Resp 18 B/P (MAP) 158/73 137/60 (85) Pulse Ox 95 O2 Delivery Room Air Room Air Intake and Output 05/03/17 05/03/17 05/04/17 15:00 23:00 07:00 Intake Total 500 ml 950 ml Output Total 700 ml 300 ml 650 ml Balance -700 ml 200 ml 300 ml MAIA KURTZ MD May 04, 2017 13:26
[2017-05-04] MEDS: DOXYCYCLINE HYCLATE 100 MG TABLET PO SCH ×2 (16:58→20:27)
[2017-05-04] MEDS: SIMVASTATIN 20 MG TABLET PO SCH (20:28)
[2017-05-04] MEDS: METHYL SALICYLATE/MENTHOL TOPICAL OINTMENT 29GM TUBE. TP SCH (20:28)
[2017-05-05 02:33] VITALS: BP 150/66
[2017-05-05 04:13] LABS: BASO % 0 % (0-3); EOS % 0 % (0-3); HEMATOCRIT 37.1 % (36.0-47.0); HEMOGLOBIN 12.7 g/dL (12.0-15.5); LYMPH # 1.1 x10^3/uL (1.0-4.8); LYMPH % 10 % (24-48); MEAN CORPUSCULAR HEMOGLOBIN 34 pg (25-35); MEAN CORPUSCULAR HGB CONC 34 g/dL (31-37); MEAN CORPUSCULAR VOLUME 99 fL (79-100); MONO % 7 % (0-9); NEUT % 83 % (31-73); PLATELET COUNT 263 x10^3/uL (140-400); RED BLOOD COUNT 3.77 x10^6/uL (3.50-5.40); RED CELL DISTRIBUTION WIDTH 13.2 % (11.5-14.5); WHITE BLOOD COUNT 11.1 x10^3/uL (4.0-11.0)
[2017-05-05 04:29] LABS: ALBUMIN 3.4 g/dL (3.4-5.0); CALCIUM 9.1 mg/dL (8.5-10.1); GFR 53.1; POTASSIUM 3.8 mmol/L (3.5-5.1); TOTAL BILIRUBIN 0.5 mg/dL (0.2-1.0); TOTAL PROTEIN 6.7 g/dL (6.4-8.2)
[2017-05-05] MEDS: LEVOTHYROXINE 25 MCG TABLET. PO SCH (06:15)
[2017-05-05 07:45] VITALS: BP 168/73
[2017-05-05] MEDS: IPRATRPIUM/ALBUTEROL 0.5/2.5MG 3 ML NEBU. NEB SCH ×2 (08:11→11:54)
[2017-05-05] MEDS: BUDESONIDE 0.5 MG/2 ML NEBU. NEB SCH (08:11)
[2017-05-05] MEDS: EZETIMIBE 10 MG TABLET. PO SCH (08:34)
[2017-05-05] MEDS: ALLOPURINOL 100 MG TABLET. PO SCH (08:34)
[2017-05-05] MEDS: BENZONATATE 100 MG CAPSULE. PO SCH ×2 (08:34→14:13)
[2017-05-05] MEDS: CARVEDILOL 3.125 MG TABLET. PO SCH (08:34)
[2017-05-05] MEDS: predniSONE 20 MG TABLET PO SCH (08:35)
[2017-05-05] MEDS: CHOLECALCIFEROL (VITAMIN D3) 1,000 UNIT TABLET PO SCH (08:35)
[2017-05-05] MEDS: MULTIVITAMIN with MINERAL TABLET. PO SCH (08:35)
[2017-05-05] MEDS: DOXYCYCLINE HYCLATE 100 MG TABLET PO SCH (08:35)
[2017-05-05] MEDS: ASPIRIN CHEWABLE 81 MG TABLET. PO SCH (08:35)
[2017-05-05 11:35] VITALS: BP 128/86
--- NOTE | 2017-05-05 11:36 | PDOC ---
PULMONARY PROGRESS NOTES Subjective still cough with yellow sputum Vitals Vital Signs Date Time Temp Pulse Resp B/P (MAP) Pulse Ox O2 Delivery O2 Flow Rate FiO2 05/05/17 08:34 72 150/66 05/05/17 08:15 94 Room Air 05/05/17 07:45 97.6 20 97.6 General: Alert, Oriented X4, No acute distress Lungs: Wheezing Cardiovascular: S1 Abdomen: Soft Neuro Exam: Alert Extremities: No Edema Skin: Warm Labs Laboratory Tests Test 05/04/17 00:40 05/05/17 03:47 White Blood Count 8.1 x10^3/uL (4.0-11.0) 11.1 x10^3/uL (4.0-11.0) Red Blood Count 3.65 x10^6/uL (3.50-5.40) 3.77 x10^6/uL (3.50-5.40) Hemoglobin 12.4 g/dL (12.0-15.5) 12.7 g/dL (12.0-15.5) Hematocrit 35.9 % (36.0-47.0) 37.1 % (36.0-47.0) Mean Corpuscular Volume 98 fL (79-100) 99 fL (79-100) Mean Corpuscular Hemoglobin 34 pg (25-35) 34 pg (25-35) Mean Corpuscular Hemoglobin Concent 35 g/dL (31-37) 34 g/dL (31-37) Red Cell Distribution Width 12.8 % (11.5-14.5) 13.2 % (11.5-14.5) Platelet Count 246 x10^3/uL (140-400) 263 x10^3/uL (140-400) Neutrophils (%) (Auto) 87 % (31-73) 83 % (31-73) Lymphocytes (%) (Auto) 10 % (24-48) 10 % (24-48) Monocytes (%) (Auto) 3 % (0-9) 7 % (0-9) Eosinophils (%) (Auto) 0 % (0-3) 0 % (0-3) Basophils (%) (Auto) 0 % (0-3) 0 % (0-3) Neutrophils # (Auto) 7.0 x10^3uL (1.8-7.7) 9.2 x10^3uL (1.8-7.7) Lymphocytes # (Auto) 0.8 x10^3/uL (1.0-4.8) 1.1 x10^3/uL (1.0-4.8) Monocytes # (Auto) 0.2 x10^3/uL (0.0-1.1) 0.7 x10^3/uL (0.0-1.1) Eosinophils # (Auto) 0.0 x10^3/uL (0.0-0.7) 0.0 x10^3/uL (0.0-0.7) Basophils # (Auto) 0.0 x10^3/uL (0.0-0.2) 0.0 x10^3/uL (0.0-0.2) Sodium Level 140 mmol/L (136-145) 143 mmol/L (136-145) Potassium Level 3.7 mmol/L (3.5-5.1) 3.8 mmol/L (3.5-5.1) Chloride Level 104 mmol/L (98-107) 106 mmol/L (98-107) Carbon Dioxide Level 25 mmol/L (21-32) 27 mmol/L (21-32) Anion Gap 11 (6-14) 10 (6-14) Blood Urea Nitrogen 16 mg/dL (7-20) 19 mg/dL (7-20) Creatinine 1.2 mg/dL (0.6-1.0) 1.0 mg/dL (0.6-1.0) Estimated GFR (Cockcroft-Gault) 43.0 53.1 BUN/Creatinine Ratio 13 (6-20) 19 (6-20) Glucose Level 174 mg/dL (70-99) 132 mg/dL (70-99) Calcium Level 9.1 mg/dL (8.5-10.1) 9.1 mg/dL (8.5-10.1) Magnesium Level 1.9 mg/dL (1.8-2.4) Total Bilirubin 0.5 mg/dL (0.2-1.0) 0.5 mg/dL (0.2-1.0) Aspartate Amino Transf (AST/SGOT) 17 U/L (15-37) 20 U/L (15-37) Alanine Aminotransferase (ALT/SGPT) 14 U/L (14-59) 19 U/L (14-59) Alkaline Phosphatase 74 U/L (46-116) 72 U/L (46-116) Total Protein 6.4 g/dL (6.4-8.2) 6.7 g/dL (6.4-8.2) Albumin 3.3 g/dL (3.4-5.0) 3.4 g/dL (3.4-5.0) Albumin/Globulin Ratio 1.1 (1.0-1.7) 1.0 (1.0-1.7) Thyroid Stimulating Hormone (TSH) 3.362 uIU/mL (0.358-3.74) Laboratory Tests Test 05/05/17 03:47 White Blood Count 11.1 x10^3/uL (4.0-11.0) Red Blood Count 3.77 x10^6/uL (3.50-5.40) Hemoglobin 12.7 g/dL (12.0-15.5) Hematocrit 37.1 % (36.0-47.0) Mean Corpuscular Volume 99 fL (79-100) Mean Corpuscular Hemoglobin 34 pg (25-35) Mean Corpuscular Hemoglobin Concent 34 g/dL (31-37) Red Cell Distribution Width 13.2 % (11.5-14.5) Platelet Count 263 x10^3/uL (140-400) Neutrophils (%) (Auto) 83 % (31-73) Lymphocytes (%) (Auto) 10 % (24-48) Monocytes (%) (Auto) 7 % (0-9) Eosinophils (%) (Auto) 0 % (0-3) Basophils (%) (Auto) 0 % (0-3) Neutrophils # (Auto) 9.2 x10^3uL (1.8-7.7) Lymphocytes # (Auto) 1.1 x10^3/uL (1.0-4.8) Monocytes # (Auto) 0.7 x10^3/uL (0.0-1.1) Eosinophils # (Auto) 0.0 x10^3/uL (0.0-0.7) Basophils # (Auto) 0.0 x10^3/uL (0.0-0.2) Sodium Level 143 mmol/L (136-145) Potassium Level 3.8 mmol/L (3.5-5.1) Chloride Level 106 mmol/L (98-107) Carbon Dioxide Level 27 mmol/L (21-32) Anion Gap 10 (6-14) Blood Urea Nitrogen 19 mg/dL (7-20) Creatinine 1.0 mg/dL (0.6-1.0) Estimated GFR (Cockcroft-Gault) 53.1 BUN/Creatinine Ratio 19 (6-20) Glucose Level 132 mg/dL (70-99) Calcium Level 9.1 mg/dL (8.5-10.1) Total Bilirubin 0.5 mg/dL (0.2-1.0) Aspartate Amino Transf (AST/SGOT) 20 U/L (15-37) Alanine Aminotransferase (ALT/SGPT) 19 U/L (14-59) Alkaline Phosphatase 72 U/L (46-116) Total Protein 6.7 g/dL (6.4-8.2) Albumin 3.4 g/dL (3.4-5.0) Albumin/Globulin Ratio 1.0 (1.0-1.7) Medications Active Scripts Medications Dose Route/Sig Max Daily Dose Days Date Category Simvastatin 20 Mg Tablet 1 Tab PO QHS 05/01/17 Reported Ramipril 2.5 Mg Capsule 1 Cap PO DAILY 05/01/17 Reported [place] 5-325 Tablet (Acetaminophen/Hydrocodone Bitart) 1 Each Tablet 1 Tab PO Q4-6HRS 05/01/17 Reported Multivitamins (Multivitamin) 1 Each Tablet 1 Tab PO DAILY 05/01/17 Reported Melatonin 3 Mg Tablet 6 Mg PO 05/01/17 Reported Levothyroxine Sodium 25 Mcg Tablet 1 Tab PO DAILY 05/01/17 Reported Zetia (Ezetimibe) 10 Mg Tablet 1 Tab PO DAILY 05/01/17 Reported Vitamin D3 (Cholecalciferol (Vitamin D3)) 1,000 Unit Tablet 1 Tab PO DAILY 05/01/17 Reported Cefdinir 300 Mg Capsule 1 Cap PO BID 05/01/17 Reported Carvedilol 3.125 Mg Tablet 1 Tab PO BID 05/01/17 Reported Calcium Carbonate 500 Mg Tablet 500 Mg PO PRN TID 05/01/17 Reported Aspirin 81 Mg Tab.chew 1 Tab PO DAILY 05/01/17 Reported Analgesic [place] (Methyl Salicylate/Menthol) 28 Gm Oint...g. 1 Gm TP QHS 05/01/17 Reported Allopurinol 100 Mg Tablet 1 Tab PO DAILY 05/01/17 Reported Impression . 1. Acute on chronic cough, suspect due to acute Bronchitis, ? mild aspiration POA(vomited once) 2. No sig. smoking history 3. Clear CXR 4. Mild chronic cough/ possible MILANA induced Plan . 1. sputum for c/s with no growth so far, normal radha 2. Empiric antibiotic, doxy added 05/04 3. Nebs, including steroids nebs 4. Consider changing lisinopril to different agent if cough does not resolve with above 5. PO steroids 6. Pt to follow up in office in 4 weeks if cough does not resolved ROLANDO MANCINI MD May 05, 2017 11:36
[2017-05-05] MEDS ORDERED: BENZ100C15 PO (12:13)
[2017-05-05] MEDS ORDERED: PRED20TA PO (12:13)
[2017-05-05] MEDS ORDERED: LEVO500T59 PO (12:13)
[2017-05-05] MEDS ORDERED: DOXY100T PO (12:13)
--- NOTE | 2017-05-05 14:24 | PDOC3 ---
Discharge Summary [facility] Date of Admission: May 01, 2017 Discharge Date: May 05, 2017 Admitting Diagnosis 1. Acute cough with sputum production: bronhitis 2. Chronic cough: 3. HTN urgency: 4. CHF: Chronic systolic and diastolic. current echo with EF 25-30%. no signs of fluid overload 5. j/o CAD: hx CABG. CKD3 MILD MALnutrition Problems: Final Diagnosis CONSULTS pulm card Brief Hospital Course Ms. Persaud is a 82 old F, homeless but lives in a hotel as per nurse, comes for cough and sob, with yellow sputum, cx not significant. pt cont cough, better with cough meds, and doxy and levaquin for now, also add prednisone as per pulm. pt's son has social issues too, homeless, stayed in the hosp with her all the time .As per nurse. pt was refused by many SNF, since her son made some troubles to SNFs. anyway, [facility] accepted by [facility], and dc today with doxy,levaquin , prednison for a few days. and duoneb. if no sputum production, and cough not better in 1 month, consider dc ACEI and fu with pulm dc time 35min General: Alert, Oriented X3, No acute distress Heart: Regular rate Lungs: no wheezing, bl coarse bs Abdomen: Normal bowel sounds, Soft Extremities: No clubbing Skin: No rashes Patient History: Patient reports no known family medical history. Problems: Disposition SNF CONDITION AT DISCHARGE: Improved Diet regular Scheduled Allopurinol (Allopurinol), 1 TAB PO DAILY, (Reported) Aspirin (Aspirin), 1 TAB PO DAILY, (Reported) Benzonatate (Benzonatate), 100 MG PO [id number] Calcium Carbonate (Calcium Carbonate), 500 MG PO PRN TID, (Reported) Carvedilol (Carvedilol), 1 TAB PO BID, (Reported) Cholecalciferol (Vitamin D3) (Vitamin D3), 1 TAB PO DAILY, (Reported) Doxycycline Hyclate (Doxycycline Hyclate), 100 MG PO BID Ezetimibe (Zetia), 1 TAB PO DAILY, (Reported) Hydrocodone/Apap 5-325 ([place] 5-325 Tablet), 1 TAB PO Q4-6HRS, (Reported) Levofloxacin (Levaquin), 500 MG PO DAILY06 Levothyroxine Sodium (Levothyroxine Sodium), 1 TAB PO DAILY, (Reported) Methyl Salicylate/Menthol (Analgesic [place]), 1 GM TP QHS, (Reported) Multivitamin (Multivitamins), 1 TAB PO DAILY, (Reported) Prednisone (Prednisone), 30 MG PO DAILY Ramipril (Ramipril), 1 CAP PO DAILY, (Reported) Simvastatin (Simvastatin), 1 TAB PO QHS, (Reported) Miscellaneous Medications Melatonin (Melatonin), 6 MG PO, (Reported) Discontinued Medications Cefdinir (Cefdinir), 1 CAP PO BID, (Reported) Follow Up pcp and pulm in 2 weeks MAIA KURTZ MD May 05, 2017 14:24
== END 2017-05-05 16:00 | DRG 202 ==
LOC: ER 23:33 → 2 SOUTH 05-01 03:10
PROVIDERS: ADMIT Internal Medicine; ATTEND Internal Medicine
DX: J20.9 Acute bronchitis, unspecified (principal); E44.1 Mild protein-calorie malnutrition; I13.0 Hypertensive heart and chronic kidney disease with heart failure and stage 1 through stage 4 chronic kidney disease, or unspecified chronic kidney disease; I50.42 Chronic combined systolic (congestive) and diastolic (congestive) heart failure; I16.0 Hypertensive urgency; E78.5 Hyperlipidemia, unspecified; K21.9 Gastro-esophageal reflux disease without esophagitis; I25.10 Atherosclerotic heart disease of native coronary artery without angina pectoris; N18.3 Chronic kidney disease, stage 3 (moderate); Z95.1 Presence of aortocoronary bypass graft; Z59.0 Homelessness; Z88.0 Allergy status to penicillin; I25.2 Old myocardial infarction; Z68.29 Body mass index [BMI] 29.0-29.9, adult
CPT/HCPCS: 36415; 71020; 80053; 82553; 83690; 83735; 84132; 84443; 84484; 85007; 85027; 85610; 87070; 87205; 93005; 93306; 94250; 94640; 94760; A6539; J7030; J7512; J7620; J7626; 97116; 97530; 99285-25